=== PATIENT | female | born 1990 | race Caucasian/White ===

== ENCOUNTER 2022-08-17 11:42 | Inpatient (IN) ==
[2022-08-17] MEDS ORDERED: LIDOCAINE 1% LOCAL 20 ML VIAL INFIL PRN (12:24)
[2022-08-17] MEDS ORDERED: OXYTOCIN 30 UNITS/500 ML BAG IV PRN (12:24)
[2022-08-17] MEDS ORDERED: PENICILLIN G POTASSIUM 6 MU in DEXTROSE 5% 250 ML IV ONE (12:45)
--- NOTE | 2022-08-17 13:28 | Obstetrical Progress Note ---
Date of Service August 17, 2022 Assessment & Plan (1) Oligohydramnios: Plan: Induction for oligohydramnios FHR; CAT1 Ctx; Minima VE /50/-3 Cervidil #1 Admission and Anticipated Discharge Date Admission Date: August 17, 2022 Results & Data ([facility]) Vital Signs (Past 12 Hours) Vital Signs Pulse BP 08/17/22 11:53 67 125/58 L
[2022-08-17 13:39] LABS: Hematocrit (blood only) 34.2 % (34.1-44.9); Hemoglobin 11.4 g/dl (12.0-16.0); Mean Corpuscular Hemoglobin 28.6 pg (25.0-34.0); Mean Corpuscular Hgb Conc 33.3 g/dL (32.0-36.0); Mean Corpuscular Volume 85.7 fL (80.0-100.0); Mean Platelet Volume 11.2 fL (9.4-12.3); Platelet Count 285 K/uL (130-400); RDW Coefficient of Variation 13.3 % (11.5-14.5); RDW Standard Deviation 41.6 fL (36.4-46.3); Red Blood Count 3.99 M/uL (3.93-5.22); White Blood Count 12.86 K/ul (4.8-10.8)
[2022-08-17] MEDS: miSOPROStoL 50 MCG TAB PO SCH ×2 (15:00→22:29)
[2022-08-17] MEDS ORDERED: PENICILLIN G POTASSIUM 3 MU in DEXTROSE 5% 100 ML IV PRN (15:24)
[2022-08-17] MEDS: LACTATED RINGER'S 1,000 ML IV PRN (18:39)
[2022-08-17] MEDS ORDERED: DINOPROSTONE 10 MG INSERT PV ONE (20:49)
--- NOTE | 2022-08-17 22:12 | Obstetrical Progress Note ---
Date of Service August 17, 2022 Assessment & Plan (1) Oligohydramnios: Plan: Induction for Oligo' FHR; CAT1 Ctx. Minimal Ve ft/post Cervidil #1 inserted in vagina Admission and Anticipated Discharge Date Admission Date: August 17, 2022 Results & Data ([facility]) Vital Signs (Past 12 Hours) Vital Signs Temp Pulse Resp BP O2 Del Method 08/17/22 19:02 36.5 C 18 08/17/22 19:02 Room Air 08/17/22 14:23 36.9 C 20 08/17/22 22:05 18 08/17/22 22:05 36.5 C 18 08/17/22 22:05 55 L 08/17/22 22:05 102/59 L 08/17/22 19:00 18 08/17/22 19:00 36.5 C 18 08/17/22 19:01 58 L 08/17/22 19:01 107/62 08/17/22 18:39 36.5 C 08/17/22 18:36 59 L 08/17/22 18:36 116/55 L 08/17/22 17:22 62 08/17/22 17:22 108/57 L 08/17/22 15:01 68 08/17/22 15:01 118/58 L 08/17/22 11:53 67 125/58 L
[2022-08-18] MEDS ORDERED: BUTORPHANOL TARTRATE 1 MG/ML VIAL IV PRN (01:11)
[2022-08-18] MEDS: LACTATED RINGER'S 1,000 ML IV PRN (01:48)
[2022-08-18] MEDS: miSOPROStoL 50 MCG TAB PO SCH ×3 (03:39→07:20)
[2022-08-18] MEDS ORDERED: ePHEDrine sulfate 50 MG/ML AMP ONE (04:12)
[2022-08-18] MEDS ORDERED: SODIUM CHLORIDE 0.9% INJ 10 ML VIAL ONE (04:13)
[2022-08-18] MEDS ORDERED: fentaNYL citrate 100 MCG/2 ML VIAL ONE (04:13)
[2022-08-18] MEDS ORDERED: LIDOCAINE 2%/EPINEPHRINE 1:200,000 20 ML SDV ONE ×2 (04:13→05:46)
[2022-08-18] MEDS ORDERED: BUPIVACAINE 0.25% 30 ML VIAL ONE (04:13)
[2022-08-18] MEDS ORDERED: fentaNYL 2MCG/ML ROPIVACAINE 1.25MG/ML 100 ML BAG EPI ONE (04:13)
--- NOTE | 2022-08-18 04:27 | Anesthesiology Consultation ---
Date of Service August 18, 2022 Assessment & Plan (1) Oligohydramnios: (2) Encounter for pre-operative examination: Chart Review Chart Review: Acceptable Risk for Labor Epidural History Height/Weight Height: 5 ft 6 in Weight: 93.44 kg Allergies Allergy/AdvReac Type Severity Reaction Status Date / Time No Known Allergies Allergy Verified 08/17/22 12:34 Medications Home Medications Medication Instructions Recorded Confirmed Last Taken cyclobenzaprine 10 mg tablet 10 mg PO TID PRN muscle spasm #10 07/20/19 Unknown tabs Active Medications Generic Name Dose Route Start Last Admin Trade Name Freq PRN Reason Stop Dose Admin Butorphanol Tartrate 1 mg 08/18/22 01:11 08/18/22 01:31 Butorphanol Tartrate 1 Mg/Ml Vial IV 09/17/22 01:10 1 mg Q2HWA PRN Administration Pain Lactated Ringer's 1,000 mls @ 125 mls/hr 08/17/22 12:24 08/18/22 04:00 Lr IV 08/19/22 12:23 999 mls/hr .Q8H PRN Infusion L&D Protocol Protocol Misoprostol 50 mcg 08/17/22 13:25 08/18/22 03:39 Misoprostol 50 Mcg Tab PO 09/16/22 13:24 Not Given Q4 ERIK Past Medical History Medical History (Updated 08/18/22 @ 04:27 by Naresh Galvez MD) No significant medical problems Past Surgical History Surgical History (Updated 08/18/22 @ 04:25 by Naresh Galvez MD) Hx of tonsillectomy Social History Smoking Status: Current every day smoker tobacco type: cigarettes Smoking cigarettes per day: 10 Hx Alcohol Use: No Hx Substance Use: No substance use type: does not use Physical Exam Vital Signs Last Vital Signs Temp 36.4 C L 08/18/22 02:30 Pulse 91 H 08/18/22 04:20 Resp 20 08/18/22 02:31 BP 110/69 08/18/22 03:47 Pulse Ox 100 08/18/22 04:20 O2 Del Method 08/17/22 19:02 Testing Laboratory Results 08/17/22 13:02
[2022-08-18] MEDS ORDERED: ONDANSETRON INJ 2 MG/ML 2 ML VIAL IV PRN ×3 (04:48→23:55)
[2022-08-18] MEDS ORDERED: NALOXONE HCL 0.4 MG/1 ML VIAL/CARP IV PRN ×2 (04:48→05:55)
[2022-08-18] MEDS ORDERED: NALOXONE HCL 1 MG in SODIUM CHLORIDE 0.9% 1000ML 1,000 ML IV PRN ×2 (04:48→05:55)
[2022-08-18] MEDS ORDERED: fentaNYL 2MCG/ML ROPIVACAINE 1.25MG/ML 100 ML BAG EPI PRN (04:48)
[2022-08-18] MEDS ORDERED: ePHEDrine sulfate 50 MG/ML AMP IV PRN ×2 (04:48→05:55)
[2022-08-18] MEDS ORDERED: ceFAZolin 2000MG 2,000 MG/15 ML SYR IV ONE (05:36)
[2022-08-18] MEDS ORDERED: MoRPHine SULFATE PF 1 MG/ML 10 ML AMP/VIAL ONE (05:47)
[2022-08-18] MEDS ORDERED: METHYLERGONOVINE MALEATE 0.2 MG/ML AMP ONE (05:51)
[2022-08-18] MEDS ORDERED: OXYTOCIN 10 UNITS/ML 10ML VIAL ONE (05:52)
[2022-08-18] MEDS ORDERED: MoRPHine SULFATE PF 1 MG/ML 10 ML AMP/VIAL INT SPINAL ONE (05:55)
[2022-08-18] MEDS ORDERED: diphenhydrAMINE 50 MG/ML VIAL IV PRN ×2 (05:55→23:55)
[2022-08-18] MEDS ORDERED: KETOROLAC 30 MG/ML VIAL IV PRN (05:55)
[2022-08-18] MEDS ORDERED: LACTATED RINGER'S 500 ML IV PRN (05:55)
[2022-08-18] MEDS ORDERED: PROMETHAZINE HCL 12.5 MG in SODIUM CHLORIDE 0.9% 50 ML IV PRN (05:55)
[2022-08-18] MEDS ORDERED: NALBUPHINE HCL INJ 10 MG/ML AMP IV PRN (05:55)
[2022-08-18] MEDS ORDERED: MoRPHine SULFATE 2 MG/ML CARP IV PRN (05:55)
[2022-08-18] MEDS ORDERED: NALOXONE HCL 0.08 MG in SYRINGE 1.8 ML IV PRN (05:55)
[2022-08-18] MEDS ORDERED: NO NARCOTICS OR SEDATIVES SCH (06:00)
[2022-08-18] MEDS ORDERED: SODIUM CHLORIDE 0.9% 1000ML 1,000 ML IV SCH (06:00)
[2022-08-18] MEDS ORDERED: ceFAZolin 2000MG 2,000 MG/15 ML SYR IV SCH (06:00)
[2022-08-18] MEDS ORDERED: DC INTRASPINAL MORPHINE SCH (06:00)
[2022-08-18] MEDS ORDERED: ePHEDrine sulfate 50 MG/ML SYR ONE (06:12)
[2022-08-18] MEDS ORDERED: PHENYLEPHRINE 100MCG/ML 5ML SYR ONE (06:12)
[2022-08-18] MEDS ORDERED: METOCLOPRAMIDE HCL INJ 5 MG/ML 2 ML VIAL ONE (06:13)
[2022-08-18] MEDS ORDERED: ONDANSETRON INJ 2 MG/ML 2 ML VIAL ONE (06:13)
[2022-08-18 06:26] LABS: Base Excess Cord Venous Blood -8.8 mEq/L (-7.7-1.9); Cord Venous Blood HCO3 21 mmol/L (18.4-26.8); Cord Venous Blood PCO2 64 mmHg (30.4-57.2); Cord Venous Blood PO2 22 mmHg (14.1-43.3); Cord Venous Blood pH 7.13 (7.20-7.44); O2 Saturation Cord Venous Bld < 60.0 % (<68)
[2022-08-18] MEDS ORDERED: TERBUTALINE SULFATE 1 MG/ML VIAL SQ ONE ×2 (06:33→07:01)
--- NOTE | 2022-08-18 06:47 | Anesthesia Procedure Note ---
Date of Service August 18, 2022 Anesthesia Post Epidural Note Vital Signs Vital Signs: Temp Pulse Resp BP Pulse Ox O2 Del Method 36.4 C L 93 H 18 98/48 L 96 08/18/22 02:30 08/18/22 05:30 08/18/22 05:00 08/18/22 05:28 08/18/22 05:30 08/17/22 19:02 Notes Mental Status: alert / awake / arousable and participated in evaluation Nausea / Vomiting: adequately controlled Pain: adequately controlled Airway Patency, RR, SpO2: stable & adequate BP & HR: stable & adequate Hydration State: stable & adequate Neuraxial Anesthesia: was administered and sensory block is resolving Anesthetic Complications: no major complications apparent Epidural: Removed without complications and With tip intact
--- NOTE | 2022-08-18 06:53 | XRay Report ---
KUB CLINICAL HISTORY: stat . No instrument count. COMPARISON STUDY: None. FINDINGS: Skin sherry are noted. No unexpected radiopaque foreign bodies within the pelvis or lower abdomen are identified. Epidural is incidentally noted. IMPRESSION: No unexpected radiopaque foreign bodies within the pelvis or lower abdomen. ACT 112: Negative or not required by law. Electronically signed by: Denys Shell M.D. 08/18/2022 6:52 AM
[2022-08-18] MEDS ORDERED: MAGNESIUM HYDROXIDE SUSP 30 ML UDC PO PRN (06:54)
[2022-08-18] MEDS ORDERED: DIPHTHERIA/TETANUS/PERTUSSIS 0.5 ML SYR/VIAL IM ONE (06:54)
[2022-08-18] MEDS ORDERED: HYDROCORTISONE ACETATE 25 MG SUPP PR PRN (06:54)
[2022-08-18] MEDS ORDERED: BENZOCAINE 20% AER SPR 82.5 GM CAN EXT PRN (06:54)
[2022-08-18] MEDS ORDERED: SENNA 8.6 MG TAB PO PRN (06:54)
--- NOTE | 2022-08-18 06:54 | Obstetrical Progress Note ---
Date of Service August 18, 2022 Assessment & Plan (1) Oligohydramnios: Plan: Called to evaluate pt after epidural analgesia VE ; 3/50/-3 parra cath is placed FHr dropped to 50-60 attempt to resuscitate fetus was unsuccessful STAT c/sec done Admission and Anticipated Discharge Date Admission Date: August 17, 2022 Results & Data ([facility]) Vital Signs (Past 12 Hours) Vital Signs Temp Pulse Resp BP Pulse Ox O2 Del Method 08/17/22 19:02 36.5 C 18 08/17/22 19:02 Room Air 08/18/22 06:50 84 97 08/18/22 06:48 86 108/55 L 08/18/22 05:30 93 H 96 08/18/22 05:28 76 98/48 L 08/18/22 05:25 96 H 97 08/18/22 05:24 89 106/51 L 08/18/22 05:20 87 97 08/18/22 05:18 80 102/59 L 08/18/22 05:15 77 96 08/18/22 05:13 81 99/56 L 08/18/22 05:10 76 97 08/18/22 05:11 74 98/54 L 08/18/22 05:09 82 96/53 L 08/18/22 05:07 77 101/53 L 08/18/22 05:05 96 08/18/22 05:05 74 08/18/22 05:05 89 94/51 L 08/18/22 05:03 80 93/50 L 08/18/22 05:00 82 18 97 08/18/22 05:01 82 92/51 L 08/18/22 04:59 85 92/46 L 08/18/22 04:57 88 103/52 L 08/18/22 04:55 98 08/18/22 04:55 93 H 08/18/22 04:55 83 93/46 L 08/18/22 04:53 81 98/47 L 08/18/22 04:50 77 97 08/18/22 04:51 75 93/49 L 08/18/22 04:49 82 99/51 L 08/18/22 04:47 75 102/51 L 08/18/22 04:45 84 104/56 L 98 08/18/22 04:43 137/69 08/18/22 04:40 83 97 08/18/22 04:41 86 136/60 08/18/22 04:39 83 125/60 08/18/22 04:35 97 H 98 08/18/22 04:34 94 H 140/63 08/18/22 04:30 97 H 98 08/18/22 04:25 90 99 08/18/22 04:20 91 H 100 08/18/22 04:15 73 97 08/18/22 04:10 70 97 08/18/22 03:47 56 L 110/69 08/18/22 02:30 20 08/18/22 02:30 36.4 C L 20 08/18/22 02:31 20 08/18/22 02:31 20 08/18/22 02:29 70 100 08/18/22 02:24 53 L 99 08/18/22 02:19 57 L 98 08/18/22 02:14 59 L 99 08/18/22 02:09 57 L 99 08/18/22 02:04 59 L 99 08/18/22 01:59 56 L 98 08/18/22 01:54 56 L 100 08/18/22 01:49 58 L 98 08/18/22 01:44 67 99 08/18/22 01:39 59 L 98 08/18/22 01:34 60 98 08/18/22 01:29 56 L 100 08/18/22 01:24 63 100 08/18/22 01:19 69 99 08/18/22 01:17 55 L 124/60 08/17/22 22:05 18 08/17/22 22:05 36.5 C 18 08/17/22 22:05 55 L 08/17/22 22:05 102/59 L 08/17/22 19:00 18 08/17/22 19:00 36.5 C 18 08/17/22 19:01 58 L 08/17/22 19:01 107/62
[2022-08-18] MEDS: LACTATED RINGER'S 1,000 ML IV SCH ×2 (07:24→22:03)
[2022-08-18] MEDS ORDERED: OXYTOCIN 20 UNITS in LACTATED RINGER'S 1,000 ML IV SCH (07:30)
--- NOTE | 2022-08-18 09:02 | Operative Report (OR) ---
DATE OF SURGERY: 08/18/2022 INDICATION FOR SURGERY: This is a 32-year-old G1, P0 at term, who was admitted on 08/17/2022 for tomy gohydramnios. HARRISON was 4.0. The patient's induction was started. She received Cervidil and Cytotec. Early a.m. of 08/18/2022, patient began to have intense contractions. She received epidural analge andrea. After the epidural, she was examined and found to be 3 cm, 50%, and -2 station. Suddenly fetus experienced bradycardia, resuscitation measures were performed including scalp stimulation, ad equate hydration and terbutaline. The bradycardia persisted. Decision was therefore made to perform a stat section. PREOPERATIVE DIAGNOSES: 1. at term. 2. Oligohydramnios. 3. Bradycardia, failed resuscitation. POSTOPERATIVE DIAGNOSES: 1. at term. 2. Oligohydramnios. 3. Bradycardia, failed resuscitation. SURGEON: Celestine Latif MD. ART MODEL: NOVA Vega. PROCEDURE: Primary section. ANESTHESIA: Epidural. DRAINS: None. ESTIMATED BLOOD LOSS: 700 mL. INTRAVENOUS FLUIDS: 2200 mL. URINE OUTPUT: 50 mL of clear urine at the end of the procedure. SPECIMEN: Placenta and cord gases. INTRAOPERATIVE COMPLICATIONS: None. PATIENT CONDITION: Stable. DISPOSITION: Postanesthesia care unit. ATTESTATION: I performed the entire procedure. FINDINGS: There was nuchal cord, which was easily reduced. There was meconium present as well. Ris ks of the abdominopelvic exam was unremarkable. INFANT INFORMATION: Is in the pediatric record. DESCRIPTION OF PROCEDURE: The patient was taken to the operating room where she was prepped in a sta t manner. A Pfannenstiel incision was made with a scalpel and carried down to the fascia. Fascia wa s incised in the midline, extended laterally on both sides. The rectus abdominis muscle was sharply dissected off the fascia. Peritoneum was identified and entered sharply and bluntly. Shawn retracto r was placed into the abdomen. A bladder flap was created and a transverse incision was made. This was extended laterally on both sides. Infant was delivered. Cord was clamped and cut, handed over t o the pediatric team. The uterus was exteriorized and cleared of all clots and debris after the plac enta was manually removed and cord gases obtained. Uterus was placed back into the abdominal cavity. Peritoneum was approximated with plain suture. Fascia was closed with Vicryl stitch and subcutaneo us space was irrigated and closed with plain suture. Skin was closed with sherry. All instruments were removed from the abdomen and accounted for x2 including sponges, needles, and re tractors. The patient is stable and sent to recovery. Job ID: [id number]
[2022-08-18] MEDS ORDERED: TERBUTALINE SULFATE 1 MG/ML VIAL ONE (12:45)
[2022-08-18] MEDS: SIMETHICONE 80 MG CHEW PO SCH ×4 (13:30→20:41)
[2022-08-18] MEDS: DOCUSATE SODIUM 100 MG CAP PO SCH ×2 (13:47→20:41)
[2022-08-18] MEDS: FERROUS SULFATE 325 MG TAB PO SCH (13:47)
[2022-08-18] MEDS: PRENATAL VITAMIN 1 TAB PO SCH (13:47)
[2022-08-18] MEDS ORDERED: PROMETHAZINE HCL 25 MG in SODIUM CHLORIDE 0.9% 50 ML IV PRN (23:55)
[2022-08-18] MEDS ORDERED: diphenhydrAMINE Capsule 25 MG CAP PO PRN (23:55)
[2022-08-19] MEDS: IBUPROFEN 600 MG TAB PO PRN ×5 (00:46→23:21)
[2022-08-19] MEDS: oxyCODONE/ACETAMINOPHEN 5mg/325mg TAB PO PRN ×5 (00:46→23:22)
[2022-08-19] MEDS: DOCUSATE SODIUM 100 MG CAP PO SCH ×2 (08:36→19:47)
[2022-08-19] MEDS: FERROUS SULFATE 325 MG TAB PO SCH (08:36)
[2022-08-19] MEDS: SIMETHICONE 80 MG CHEW PO SCH ×4 (08:36→19:46)
[2022-08-19] MEDS: PRENATAL VITAMIN 1 TAB PO SCH (08:36)
[2022-08-19 09:01] LABS: Basophils # (auto) 0.03 K/uL (0-0.2); Basophils % (auto) 0.2 %; Eosinophils # (auto) 0.14 K/uL (0-0.50); Eosinophils % (auto) 0.9 %; Hematocrit (blood only) 29.8 % (34.1-44.9); Hemoglobin 9.8 g/dl (12.0-16.0); Immature Granulocytes % (auto) 0.6 %; Lymphocytes # (auto) 2.53 K/uL (1.2-3.4); Lymphocytes % (auto) 16.2 %; Mean Corpuscular Hemoglobin 28.1 pg (25.0-34.0); Mean Corpuscular Hgb Conc 32.9 g/dL (32.0-36.0); Mean Corpuscular Volume 85.4 fL (80.0-100.0); Mean Platelet Volume 11.1 fL (9.4-12.3); Monocytes # (auto) 1.02 K/uL (0.24-0.82); Monocytes % (auto) 6.5 %; Neutrophils # (auto) 11.78 K/uL (1.4-6.5); Neutrophils % (auto) 75.6 %; Platelet Count 279 K/uL (130-400); RDW Coefficient of Variation 13.4 % (11.5-14.5); RDW Standard Deviation 41.5 fL (36.4-46.3); Red Blood Count 3.49 M/uL (3.93-5.22)
--- NOTE | 2022-08-19 10:39 | Obstetrical Progress Note ---
Date of Service August 19, 2022 Assessment & Plan (1) delivery delivered: c/ #1 pt doing well continue day #1 care Subjective Ambulation: ambulating normally Voiding: no voiding problems Passing Gas:: Yes Diet Tolerance:: clear liquids Lochia:: Small Feeding Type:: breast feeding Review of Systems All systems reviewed & are unremarkable except as noted in HPI & below Physical Exam Constitutional WD/WN, vitals as above well developed and well nourished Eyes PERRL, conjunctivae normal, anicteric sclerae ENMT external ear and nose normal, oropharynx normal Neck trachea midline, no thyromegaly Respiratory normal respiratory effort, lungs clear to auscultation Cardiovascular RRR, no murmur, no edema Chest (Breasts) normal inspection/palpation of breasts Gastrointestinal (Abdomen) normal bowel sounds, soft, nontender, no hepatosplenomegaly Musculoskeletal no cyanosis or clubbing, extremities motor strength 5/5 Skin no rashes, warm and dry + incision (Clean,dry and intact) Neurologic patellar DTR's 2+ bilat, sensation intact Psychiatric A+Ox3, euthymic affect Genitourinary normal external appearance Lymphatic no cervical or axillary lymphadenopathy Results & Data ([facility]) Vital Signs (Past 12 Hours) Vital Signs Temp Pulse Resp BP Pulse Ox O2 Del Method 08/19/22 07:40 36.8 C 84 18 98/62 L 97 Room Air 08/19/22 03:30 37.0 C 79 18 98/59 L 96 Room Air 08/19/22 00:00 36.8 C 86 18 100/63 97 Room Air 08/19/22 00:00 18 97 08/18/22 23:00 18 96
[2022-08-19] MEDS ORDERED: IRON SUCROSE 200 MG in 0.9 % SODIUM CHLORIDE 100 ML IV ONE (11:00)
--- NOTE | 2022-08-19 11:17 | Obstetrical Progress Note ---
Date of Service August 19, 2022 Assessment & Plan (1) delivery delivered: Results & Data ([facility]) Vital Signs (Past 12 Hours) Vital Signs Temp Pulse Resp BP Pulse Ox O2 Del Method 08/19/22 07:40 36.8 C 84 18 98/62 L 97 Room Air 08/19/22 03:30 37.0 C 79 18 98/59 L 96 Room Air 08/19/22 00:00 36.8 C 86 18 100/63 97 Room Air 08/19/22 00:00 18 97
[2022-08-19] MEDS ORDERED: bisacodyL 5 MG TABEC PO SCH (20:00)
[2022-08-20] MEDS: IBUPROFEN 600 MG TAB PO PRN ×2 (05:06→09:16)
[2022-08-20] MEDS: oxyCODONE/ACETAMINOPHEN 5mg/325mg TAB PO PRN ×2 (05:06→09:15)
[2022-08-20] MEDS ORDERED: bisacodyL 10 MG SUPP PR PRN (06:55)
[2022-08-20 08:00] LABS: Hematocrit (blood only) 29.6 % (34.1-44.9); Hemoglobin 9.6 g/dl (12.0-16.0)
--- NOTE | 2022-08-20 08:41 | Obstetrical Progress Note ---
Date of Service August 20, 2022 Assessment & Plan (1) delivery delivered: Postop day 2 Continue normal course, staple removal in the office 5 to 7 days after instructions discussed with patient, patient discharge will be placed at this time Subjective Ambulation: ambulating normally Voiding: no voiding problems Passing Gas:: Yes Diet Tolerance:: regular diet Lochia:: Small Feeding Type:: breast feeding Current Pain Level(1-10): 1 Doing well, wants to go home today Review of Systems All systems reviewed & are unremarkable except as noted in HPI & below Physical Exam Constitutional WD/WN, vitals as above Respiratory normal respiratory effort, lungs clear to auscultation Cardiovascular RRR, no murmur, no edema Gastrointestinal (Abdomen) normal bowel sounds, soft, nontender, no hepatosplenomegaly Incision, clean dry intact and sherry in place. No erythema Results & Data ([facility]) Vital Signs (Past 12 Hours) Vital Signs Temp Pulse Resp BP Pulse Ox O2 Del Method 08/19/22 23:09 36.6 C 71 18 103/66 96 Room Air
[2022-08-20] MEDS: DOCUSATE SODIUM 100 MG CAP PO SCH (09:15)
[2022-08-20] MEDS: PRENATAL VITAMIN 1 TAB PO SCH (09:15)
[2022-08-20] MEDS: SIMETHICONE 80 MG CHEW PO SCH (09:15)
[2022-08-20] MEDS: FERROUS SULFATE 325 MG TAB PO SCH (09:15)
--- NOTE | 2022-08-25 11:21 | Coding Query ---
CODING QUERY To promote full compliance with coding requirements relating to patient care, provider participation is requested in all cases of supervisor mold construction uncertainty. Please assist us with the question(s) below: Coding Question(s): Please confirm the weeks of gestation at the time of admission. This is missing in the documentation. Physician's Response(s): 40.2 weeks gestation Thank you Dunia Stewart Principal Diagnosis: "that condition established after study, to be chiefly responsible for occasioning the admission of the patient to the hospital for care." Co-Existing Principal Diagnosis: "when two or more diagnoses equally meet the criteria for principal diagnosis as determined by the circumstances of admission, diagnostic work up, and/or therapy provided, and the Alphabetic Index, Tabular List, or another coding guideline does not provide sequencing direction, any one of the diagnoses may be sequenced first." "When the physician has documented what appears to be a current diagnosis in the body of the record, but has not included the diagnosis in the final diagnostic statement, the physician should be asked whether the diagnosis should be added." ([facility] 2 QTR90. p3-4) LUIS
--- NOTE | 2022-08-29 11:02 | Discharge Summary (DS) ---
DATE OF ADMISSION: 08/17/2022. DATE OF DISCHARGE: 08/20/2022. HISTORY OF PRESENT ILLNESS: This is a 32-year-old G1, P0 at term , was admitted on 08/17/20 22 for oligohydramnios with HARRISON of 4.0. She was admitted for induction of labor. Induction was star rachel. The patient received Cervidil and Cytotec early on the morning of 08/18/2022. Patient began to have nonreassuring heart rate. Decision was therefore made to perform section after she had prolonged bradycardia. Details of surgery is in the surgical note. Postoperatively, the pat ient did well and met all milestones in recovery and on postoperative day #1 and #2, she was safely d ischarged home on 08/20/2022. PAST MEDICAL HISTORY: The patient had no history of diabetes, hypertension, or asthma. PAST SURGICAL HISTORY: The patient has a history of tonsillectomy. SOCIAL HISTORY: The patient was . Denies drug or alcohol use. FAMILY HISTORY: Noncontributory. ALLERGIES: The patient has no known drug allergies. REVIEW OF SYSTEMS: Negative except as dictated in the HPI. PHYSICAL EXAMINATION: VITAL SIGNS: Vitals on 08/20/2022 showed blood pressure of 112/74, pulse of 70, respiration of 18, t emperature of 36.3. HEART: S1 and S2, regular rhythm and rate. LUNGS: Clear to auscultation bilaterally. ABDOMEN: Nontender, nondistended, positive bowel sounds. Incision was clean, dry and intact. EXTREMITIES: No cyanosis, clubbing or edema. LABORATORY DATA: Labs on 08/20/2022 showed hemoglobin of 9.6, hematocrit of 29.6. OPERATIONS: Primary section. DISCHARGE DIAGNOSIS: Postoperative section. PLAN ON DISCHARGE: The patient is discharged home with instructions including diet, followup appoint ment and medications. Job ID: [id number]
== END 2022-08-20 12:45 | disposition home or self-care (01) | DRG 787 ==
LOC: 4S1 11:42 → 4E2 12:21 → 4S1 12:41 → 4E2 08-18 10:07

== ENCOUNTER 2024-05-02 05:37 | Inpatient (IN) ==
--- NOTE | 2024-04-23 12:11 | Anesthesiology Consultation ---
Date of Service April 23, 2024 Assessment & Plan (1) Encounter for pre-operative examination: - CSE 08/18/22 L3-L4 1 attempt. - Per traveling phlebotomist on 04/23/24: No known infectious disease contacts, current infectious disease symptoms in past 10 days or COVID positive test result in the past 30 days. Chart Review Chart Review: entry level software developer initiated History Surgery Operation Date: 05/02/24 07:30 Proposed Procedures p Repeat Section - Esperanza Mcmahon MD s With Bilateral Tubal Ligation - Esperanza Mcmahon MD Height/Weight Height: 5 ft 6 in Weight: 108.862 kg Allergies Allergy/AdvReac Type Severity Reaction Status Date / Time No Known Allergies Allergy Verified 04/23/24 10:43 Medications Home Medications Medication Instructions Recorded Confirmed Last Taken iron,carbonyl 65 mg-vitamin C 125 1 tab PO QAM 04/23/24 04/23/24 Unknown mg tablet,delayed release (Vitron-C) levothyroxine 75 mcg tablet 75 mcg PO QAM 04/23/24 04/23/24 Unknown prenat.vits,madhuri,ytv-hyzm-zzuez 1 tab PO QAM 04/23/24 04/23/24 Unknown Past Medical History Medical History (Updated 04/23/24 @ 12:08 by Bailey Berry PA-C) Anemia History of COVID-19 2022, asymptomatic but dtr tested positive>no residual symptoms Hypothyroidism Oligohydramnios hx, with previous in 2021 Past Surgical History Surgical History History of carpal tunnel release of both wrists History of dilatation and curettage Hx of section 2021 Hx of tonsillectomy Social History Smoking Status: Current some day smoker tobacco type: cigarettes Smoking cigarettes per day: occasional use Smoking End Date: quit cigarettes 2021; vapes occasionally now Hx Alcohol Use: Yes (none for last 6-7 years) Hx Substance Use: Yes substance use type: former substance user and marijuana Last Used Substance Other:: years ago Testing Laboratory Results 03/26/24 WBC: 11.2 H/H: 11/38 PLATELETS: 346,000
[2024-05-02] MEDS: LACTATED RINGER'S 1,000 ML IV SCH ×2 (05:45→07:06)
[2024-05-02] MEDS: ACETAMINOPHEN 500 MG TAB ONE (06:46)
[2024-05-02 06:48] LABS: Hematocrit (blood only) 33.3 % (37.0-47.0); Hemoglobin 11.1 g/dl (12.0-16.0); Mean Corpuscular Hemoglobin 26.6 pg (25.0-34.0); Mean Corpuscular Hgb Conc 33.3 g/dL (32.0-36.0); Mean Corpuscular Volume 79.9 fL (80.0-100.0); Mean Platelet Volume 11.7 fL (9.4-12.4); Platelet Count 297 K/uL (130-400); RDW Coefficient of Variation 13.8 % (11.5-14.5); RDW Standard Deviation 39.8 fL (36.4-46.3); Red Blood Count 4.17 M/uL (4.20-5.40); White Blood Count 13.06 K/ul (4.8-10.8)
[2024-05-02] MEDS ORDERED: SODIUM CHLORIDE 0.9% 250 ML IV PRN (06:54)
[2024-05-02] MEDS ORDERED: MoRPHine SULFATE PF 1 MG/ML 10 ML AMP/VIAL ONE (07:07)
--- NOTE | 2024-05-02 07:25 | History & Physical Bridge Note ---
Date of Service May 02, 2024 History & Physical Bridge Note I have examined the patient, reviewed the History & Physical and in the interval since the performance of the History & Physical I have noted the following changes of clinical significance: no changes noted
[2024-05-02] MEDS: ceFAZolin 2000MG 2,000 MG/15 ML SYR IV SCH (08:07)
[2024-05-02] MEDS ORDERED: METOCLOPRAMIDE HCL INJ 5 MG/ML 2 ML VIAL ONE (08:28)
[2024-05-02] MEDS ORDERED: PHENYLEPHRINE 100MCG/ML 10ML SYR IV ONE (08:28)
[2024-05-02] MEDS ORDERED: ONDANSETRON INJ 2 MG/ML 2 ML VIAL ONE (08:28)
[2024-05-02] MEDS ORDERED: DEXAMETHASONE SOD INJ 4 MG/ML VIAL ONE (08:28)
[2024-05-02] MEDS ORDERED: ePHEDrine sulfate 50 MG/5 ML SYR ONE (08:28)
[2024-05-02] MEDS ORDERED: ceFAZolin 330 MG/ML 1 GM VIAL ONE (08:28)
[2024-05-02] MEDS ORDERED: OXYTOCIN 10 UNITS/ML VIAL ONE ×3 (08:30→09:03)
[2024-05-02] MEDS ORDERED: SUCCINYLCHOLINE CHLORIDE 20 MG/ML 10 ML VIAL IV ONE (08:31)
[2024-05-02] MEDS ORDERED: ONDANSETRON INJ 2 MG/ML 2 ML VIAL IV PRN (08:41)
[2024-05-02] MEDS ORDERED: PROMETHAZINE 6.25 MG/50.25 ML BAG IV PRN (08:41)
[2024-05-02] MEDS ORDERED: NALBUPHINE HCL 5 MG in SYRINGE 0 ML IV PRN (08:41)
[2024-05-02] MEDS ORDERED: diphenhydrAMINE 50 MG/ML VIAL IV PRN (08:41)
[2024-05-02] MEDS ORDERED: NALOXONE HCL 0.4 MG/1 ML VIAL/CARP IV PRN (08:41)
[2024-05-02] MEDS ORDERED: NALOXONE HCL 0.08 MG in SYRINGE 1.8 ML IV PRN (08:41)
[2024-05-02] MEDS ORDERED: MoRPHine SULFATE 2 MG/ML CARP IV PRN (08:41)
[2024-05-02] MEDS ORDERED: LACTATED RINGER'S 500 ML IV PRN (08:41)
[2024-05-02] MEDS ORDERED: MoRPHine SULFATE PF 1 MG/ML 10 ML AMP/VIAL INT SPINAL ONE (08:41)
[2024-05-02] MEDS ORDERED: ePHEDrine sulfate 50 MG/ML AMP IV PRN (08:41)
[2024-05-02] MEDS ORDERED: NALOXONE HCL 1 MG in SODIUM CHLORIDE 0.9% 1,000 ML IV PRN (08:41)
[2024-05-02] MEDS ORDERED: SODIUM CHLORIDE 0.9% 1,000 ML IV SCH (08:45)
[2024-05-02] MEDS ORDERED: DC INTRASPINAL MORPHINE SCH (08:45)
[2024-05-02] MEDS ORDERED: NO NARCOTICS OR SEDATIVES SCH (08:45)
[2024-05-02] MEDS ORDERED: HYDROCORTISONE ACETATE 25 MG SUPP PR PRN (09:30)
[2024-05-02] MEDS ORDERED: CALCIUM CARBONATE 500 MG CHEWABLE TAB PO PRN (09:30)
[2024-05-02] MEDS ORDERED: LACTATED RINGER'S 1,000 ML IV SCH (09:30)
[2024-05-02] MEDS ORDERED: DIPHTHER/TETAN/PERTUS Vaccine (Tdap, Adol/Adult) 0.5mL IM ONE (09:30)
[2024-05-02] MEDS ORDERED: BENZOCAINE 20% SPRY 85 APPLN/85 GM CAN EXT PRN (09:30)
[2024-05-02] MEDS ORDERED: SENNA 8.6 MG TAB PO PRN (09:30)
--- NOTE | 2024-05-02 09:31 | Operative Report ---
Post Operative Report Pre & Post Diagnosis Operation Date: 05/02/24 07:30 Pre-Op Diagnosis: 1. Term 2. Previous section who desires repeat 3. Bilateral tubal ligation Post-Op Diagnosis: Same I identified the patient and participated in the time-out.: Yes Procedure Operation Date: 05/02/24 07:30 Actual Procedures p Repeat Section with the of a live male child at 0838. - Esperanza Mcmahon MD s Bilateral Tubal Sterilization - Esperanza Mcmahon MD Surgeon Esperanza Mcmahon MD Acid Leveler CRUZ Duran Quantitative Blood Loss (QBL) 348 ml Findings Consistent with Post-Op Diagnosis Baby was a viable male , Apgars 9/9, weight 3100 gr, Delivered at 08:38 AM maternal findings, normal uterus open tubes and ovaries. Specimens Placenta and cord Drains Villareal catheter drained 125 mL of clear urine Anesthesia Type Spinal Complications none Disposition Accompanied Patient To Recovery: Yes Indications patient is a 34-year-old -0-0-1 at 39 weeks of gestation who was admitted for schedule repeat and bilateral tubal ligation. Patient has a history of prior 2021 and declined TOLAC/ and desired repeat C- section. Patient has been counseled for reversible nonsurgical contraceptive options she declined them all and she desires tubal sterilization with her today. She understand the risks and signed informed consent. Description of Procedure Patient was taken to operating room where a spinal anesthesia was given without difficulty. She was placed in dorsal supine position with a leftward tilt. She was prepared and draped in usual sterile fashion. A financial skin incision was made and carried through to the underlying layer of fascia with the Bovie. Fascia was incised in the midline and incision was extended laterally with the help of Garrett scissors. Then the upper aspect of the fascial incision was g rasped with 2 Geovanni clamps elevated the underlying rectus muscles were dissected off sharply with Garrett scissors. Same thing was done on the lower incision. Then the muscles were in the midline, peritoneum was identified grasped with 2 pickups and entered sharply with Metzenbaum scissors. Peritoneal incision was extended superior and inferiorly with good visualization of the bladder. The bladder blade was inserted. Vesicouterine peritoneum was identified, grasped with pickups and entered sharply with Metzenbaum scissors, bladder flap was created digitally and bladder blade was reinserted. Uterus was incised in transverse fashion, incision was extended laterally, membranes were ruptured and clear fluid was obtained. Baby's head was delivered without difficulty, followed by shoulders and body with minimal traction without faculty. There was nuchal cord x 2 around the neck those were reduced while delivering the infant. Mouth and nose were suctioned there was dried on the field he was vigorously crying and moving. The cord was clamped times and cut at 1 minute delay and then the was handed off to the pediatric team. Then the placenta was delivered manually as intact and complete. Uterus was externalized and cleared of all clots and debris's. Uterine incision was repaired with 0 Vicryl in a running locked fashion, second umbricating layer was placed with the same suture in running locked fashion. Excellent hemostasis achieved. Cul-de-sac and the pelvis was irrigated with warm normal saline and suctioned. Incision was checked of anesthetic again. Uterus was returned to the abdomen, parietal peritoneum was reapproximated with 3-0 Vicryl in a running fashion and the muscles were reapproximated in the same suture in a running fashion. All of the fascia and rectus muscles were hemostatic. Rectus fascia was reapproximated with 0 Vicryl starting from both columns meeting in the midline. Subcuticular fat tissue was brought together with 2-0 Vicryl in a running fashion, skin was closed with 4-0 Monocryl in a subcuticular cuticular fashion. The mom and baby tolerated procedure well. Sponge needle instrument count was correct x3. she was given 2 g of cefazolin before surgery. No complications happened, I was present during whole procedure. My assistant teacher primary was needed for retraction, hemostasis and aid during delivery of infant I attest to the content of the Intraoperative Record and any orders documented therein. Any exceptions are noted below.
[2024-05-02] MEDS: KETOROLAC 30 MG/ML VIAL IV PRN (11:11)
[2024-05-02] MEDS ORDERED: Nursing to Pharmacy Communication SCH (12:30)
--- NOTE | 2024-05-02 12:43 | Anesthesiology Progress Note ---
Date of Service May 02, 2024 Anesthesia Post Procedure Vital Signs Vital Signs: Temp Pulse Resp BP Pulse Ox 05/02/24 11:30 84 100 05/02/24 11:25 83 105/52 L 100 05/02/24 11:20 75 100 05/02/24 11:15 82 107/68 100 05/02/24 11:10 78 100 05/02/24 11:05 100 05/02/24 11:05 67 05/02/24 11:05 68 105/54 L 05/02/24 11:00 78 100 05/02/24 10:55 74 102/51 L 100 05/02/24 10:50 77 99 05/02/24 10:45 72 101/50 L 99 05/02/24 10:40 77 98 05/02/24 10:35 83 102/59 L 99 05/02/24 10:30 77 97 05/02/24 10:26 76 119/59 L 05/02/24 10:25 79 100 05/02/24 10:20 79 100 05/02/24 10:15 73 121/56 L 98 05/02/24 10:10 70 99 05/02/24 10:05 83 22 118/71 98 05/02/24 10:05 99 05/02/24 10:05 74 05/02/24 10:05 82 118/71 05/02/24 10:00 72 100 05/02/24 09:59 72 91 05/02/24 09:55 79 20 114/54 L 98 05/02/24 09:55 76 114/56 L 99 05/02/24 09:50 79 99 05/02/24 09:49 85 91 05/02/24 09:45 73 18 98/56 L 98 05/02/24 09:45 89 98/56 L 98 05/02/24 09:40 79 99 05/02/24 09:39 79 89 L 05/02/24 09:35 78 18 108/51 L 100 05/02/24 09:35 100 05/02/24 09:35 80 05/02/24 09:35 78 108/51 L 05/02/24 09:30 92 H 97 05/02/24 09:26 36.4 C L 71 18 113/54 L 100 05/02/24 09:26 70 113/54 L 05/02/24 09:25 71 100 05/02/24 07:13 68 105/78 05/02/24 07:10 36.4 C L 05/02/24 05:58 36.6 C 18 05/02/24 05:49 68 120/59 L Pain Intensity Lower Medial Abdomen: Pain Intensity: 0 Transfer of Care Handoff Completed per policy Notes Mental Status: alert / awake / arousable Patient Amnestic to Procedure: Yes Nausea / Vomiting: adequately controlled Pain: adequately controlled Airway Patency, RR, SpO2: stable & adequate BP & HR: stable & adequate Hydration State: stable & adequate Neuraxial Anesthesia: was administered and sensory block is resolving Anesthetic Complications: no major complications apparent
--- OUTSIDE RECORDS SUMMARY | 2024-05-02 12:53 | External Medical Summary | Summary of Care ---
Author Name Unknown Organization [facility] Address [address] [place] [address] Phone [phone] Care Team Providers Care Colorer Name Role Phone Barbra Lord DO Primary Care Provider [phone] Reason for Visit * Reason Comments Return Visit Encounter Details Date Type Department Care Team (Late st Contact Info) Description 04/27/2024 2:15 PM EDT Office Visit Gynecology/Obstetric s [facility] [address] [facility] [place] [address] Barbra Lucas PA-C [address] [facility] [place] [id number] Normal in third trimester*; Multigravida of advanced maternal age in third trimester; Obesity in , antepartum; Hypothyroidism affecting in third trimester; Previous delivery, antepartum condition or complication; History of prior with SGA ; complicated by tobacco use in third trimester; Uterine size date discrepancy Allergies No known active allergiesdocumented as of this encounter (statuses as of 04/27/2024) Medications Medication Sig Dispensed Refills Start Date End Date Status Levothyroxine Sodium 75 MCG Oral Tablet (Levoxyl) Take 1 Tablet by mouth in the morning. (at least 30 min prior to breakfast or other meds). 90 Tablet 3 09/16/2023 Active 28-0.8 MG Oral Tablet Take by mouth. Active Vitron-C 65-125 MG Oral Tablet (Iron-Vitamin C 65-125 mg per tab) Take 1 Tablet by mouth in the morning. 60 Tablet 1 02/13/2024 Active documented as of this encounter (statuses as of 04/27/2024) Active Problems Problem Noted Date Diagnosed Date Antepartum anemia 02/13/2024 Overview: Hgb 11.2 at 27w5d. Vitron C once daily. Repeat CBC at 34 weeks - hgb 11.8 Normal 10/17/2023 Obesity in , antepartum 10/17/2023 Overview: Class 1, early GTT normal Hypothyroidism affecting 10/17/2023 Overview: TSH Results: Lab Results Component Value Date/Time TSH - [facility] 2.69 09/19/2023 04:00 PM TSH - [facility] 0.81 07/21/2023 10:58 AM TSH - [facility] 1.42 05/17/2023 02:13 PM AMA (advanced maternal age) multigravida 35+ 01/2024 Previous delivery, antepartum condition or complication 10/17/2023 History of prior with SGA 01/2024 Overview: 1st baby 2,481g at 40w5d - consider 3rd trimester growth Tobacco use complicating 10/17/2023 Overview: Vapes, encouraged cessation Hypothyroidism 09/29/2023 Hyperprolactinemia 07/21/2023 Pituitary microadenoma 04/19/2011 Estimated Date of Delivery Comme nts Yes 05/09/2024 Based on Ultraso und documented as of this encounter (statuses as of 04/27/2024) Resolved Problems Problem Noted Date Diagnosed Date Resolved Date Severe obesity (BMI 35.0-35. 9 with comorbidity) 07/21/2023 09/29/2023 Carrier of group B Streptococcus 07/22/2022 09/28/2022 Anemia during in third trimester 07/11/2022 09/28/2022 Overview: 11.1 at 28w Polyhydramnios in third trimester 06/29/2022 07/27/2022 Overview: HARRISON 26cm at 33w4d Polyhydramnios is categorized as: o Mild HARRISON of 24.0-29.9 cm o Moderate HARRISON of 30.0-34.9 cm o Severe HARRISON of greater than or equal to 35 cm o RECOMMENDATIONS: In non-diabetic patients, re-screen for GDM if not done within the previous 4 weeks. Perform MFM (Maternal- Medicine) ultrasound in 4 weeks for assessment of growth and fluid. Recommend delivery at 39 weeks. Supervision of normal first , antepartum 12/28/2021 09/28/2022 Tobacco abuse 12/28/2021 09/29/2023 documented as of this encounter (statuses as of 04/27/2024) Immunizations Name Administration Dates Next Due TDAP (age 10 and older)(Boostrix) 07/26/2022 documented as of this encounter Social History Tobacco Use Types Packs/Day Years Used Date Smoking Tobacco: Former Cigarettes Smokeless Tobacco: Never Alcohol Use Standard Drinks/Week Comments Not Currently 0 (1 standard drink = 0.6 oz pur e alcohol) PHQ-2 Answer Date Recorded PHQ Adult Total Score 0 12/12/2023 Hunger Vital Sign Answer Date Recorded Within the past 12 months, y ou worried that your food would run out before you got the money to buy more. Never true 11/28/19 24 Within the past 12 months, t he food you bought just didn't last and you didn't have money to get more. Never true 11/28/2023 [place] Depression Scale Answer Date Recorded [place] Depression Scale Total 3 04/12/2024 The thought of harming myself has occurred to me . Never 04/12/2024 Childcare Answer Date Recorded Do you feel overwhelmed with taking care of a child, family member or friend? No 11/28/2023 Does your family need help f inding childcare? (Household - for ages 0-17 years) Not on file 11/28/2023 Clothing Answer Date Recorded Have you been unable to get clothing when it was really needed? No 11/28/2023 Is your family able to get c lothes or diapers when needed? (Household - for ages 0-17 years) Not on file 11/28/2023 Personal Safety Answer Date Recorded Do you feel unsafe or have concerns for your saf ety? No 11/28/2023 Do you have concerns for you r family's safety? (Household - for ages 0-17 years) Not on file 11/28/2023 Utilities Answer Date Recorded Do you have trouble paying y our heating, water, or electric bill? No 11/28/2023 Is your family able to pay t he heat, water, or electric bill? (Household - for ages 0-17 years) Not on file 11/28/2023 Does your family have access to good internet? (Household - for ages 0-17 years) Not on file 11/28/2023 Employment Status Answer Date Recorded Are you unemployed or without regular income? No 11/28/2023 Does the household have a [facility] source of income? (Household - for ages 0-17 years) Not on file 11/28/2023 Social Connections Answer Date Recorded How often do you feel lonely or isolated from th ose around you? Never 11/28/2023 Financial Resource Strain Answer Date R ecorded Do you have any trouble payi ng for your medications, or do you think you might in the future? No 11/28/2023 Does your family have troubl e paying for medicine? (Household - for ages 0-17 years) Not on file 11/28/2023 Transportation Needs Answer Date Record ed READ ONLY Do you have troubl e getting a ride to medical visits or work? Never True 11/28/2023 Does your family have a hard time getting a ride to doctors visits? (Household - for ages 0-17 years) Not on file 11/28/2023 Has lack of transportation k ept you from medical appointments, meetings, work, or from getting things needed for daily living? Check all that apply. (Adult - for ages 18 years and over) Not on file 11/28/2023 Do you (or your family) have trouble finding or paying for a ride (transportation)? (Household - for ages 0-17 years) Not on file 11/28/2023 Housing Stability Answer Date Recorded Do you currently live in a s helter or have no steady place to sleep at night? No 11/28/2023 READ ONLY Do you think you a re at risk of becoming homeless? No 11/28/2023 Does your family worry about paying for your home or becoming homeless? (Household - for ages 0-17 years) Not on file 0 11/28/2023 Are you homeless or worried that you might be in the future? (Adult - for ages 18 years and over) Not on file Are you (or your family) sheldon eless or worried that you might be in the future? (Household - for ages 0-17 years) Not on file Food Insecurity Answer Date Recorded Do you need food for this week? No 11/28/2023 Are you able to get enough f ood for your family? (Household - for ages 0-17 years) Not on file 11/28/2023 Does your family need food t his week? (Household - for ages 0-17 years) Not on file 11/28/2023 Do you always have enough fo od for your family? (Household - for ages 0-17 years) Not on file 11/28/2023 Estimated Date of Delivery Comme nts Yes 05/09/2024 Based on Ultraso und Sex and Gender Information Value Date Recorded Sex Assigned at Female 12/28/2021 2:06 PM EDT Gender Identity Female 12/28/2021 2:06 PM EDT Sexual Orientation Straight 12/28/2021 2: 06 PM EDT Job Start Date Occupation Industry Not on file Not on file Not on file documented as of this encounter Last Filed Vital Signs Vital Sign Reading Time Taken Comments Blood Pressure 116/70 04/27/2024 2:12 PM EDT Pulse - - Temperature - - Respiratory Rate - - Oxygen Saturation - - Inhaled Oxygen Concentration - - Weight 108.4 kg (239 lb) 04/27/2024 2:12 PM EDT Height 167.6 cm (5' 6") 04/27/2024 2:12 PM EDT Body Mass Index 38.58 04/27/2024 2:12 PM EDT documented in this encounter Progress Notes * Renee Mandel LPN - 04/27/2024 2:12 PM EDT 38w2d Had US today 55% 3381gm Harrison 18.9 * Barbra Lucas PA-C - 04/27/2024 1:55 PM EDT Barbara Casiano is a 34 year old female here for her routine OB appointment at 38w2d Her Estimated Date of Delivery: 05/09/24 with BTL scheduled 05/02. U/S today for size > dates. Finalized report shows EFW 55th percentile. HARRISON 19.0. Heart rate 156bpm. Vertex presentation. REVIEW OF SYSTEMS She affirms movement. Denies vaginal bleeding, LOF, contractions, N/V, headaches, vision changes, chest pain, RUQ pain. PHYSICAL EXAM Filed Vitals: 04/27/24 1412 BP: 116/70 Weight: 108.4 kg (239 lb) Height: 1.676 m (5' 6") ASSESSMENT/PLAN Normal in third trimester (Primary) Multigravida of advanced maternal age in third trimester Obesity in , antepartum Hypothyroidism affecting in third trimester Previous delivery, antepartum condition or complication History of prior with SGA complicated by tobacco use in third trimester Uterine size date discrepancy Supervision of - labor precautions and kick counts reviewed Offered RAQUEL before 05/02. Patient declines, but to reach out if she has concerns prior. RTO PRN. Barbra Lucas PA-C 04/27/2024 documented in this encounter Plan of Treatment Upcoming Encounters Date Type Department Care Team (Late st Contact Info) Description 05/09/2024 11:00 AM EDT [facility] [address] [place] [address] Barbie Feliz CRNP [address] [place] [address] 06/12/2024 10:00 AM EDT Office Visit Neuroendocrine, [place] [address] [place] [address] Clinic, Neuroendocrine Multidisciplinary [address] [place], [place] [phone] Health Maintenance Due Date Last Done Comments Hepatitis B Vaccine (1 of 3 - 19+ 3-dose series) 2008 COVID-19 Vaccine (1 - 2022-24 season) 2023 Influenza Vaccine (FLU shot) (#1) 2024 Depression Screening 12/11/2024 12/12/2023 TSH 03/26/2025 03/26/2024, 06/0 11/2023, 12/07/2023, Additional history exists Pap Smear 09/28/2025 09/28/2022 Diabetes Screening 11/22/2025 11/22/2022, 11/22/2022 Cervical Cancer Screening 09/28/2027 HPV/Co-Test 09/28/2027 09/28/2022 DTaP,Tdap,and Td Vaccines (2 - Td or Tdap) 07/26/2032 07/26/2022 HPV (Gardasil) Vaccine Aged Out No lo nger eligible based on patient's age to complete this topic MENINGOCOCCAL (MENACTRA/MENVEO) Aged Out No longer eligible based on patient's age to complete this topic Pneumococcal Vaccine: Pediatrics (0 to 5 Years) and At-Risk Patients (6 to 64 Years) Aged Out No longer eligible based on patient's age to complete this topic documented as of this encounter Medical Devices Not on filedocumented as of this encounter Visit Diagnoses Diagnosis Normal in third trimester- Primary Multigravida of advanced maternal age in third trimester Obesity in , antepartum Obesity complicating , childbirth, or the puerperium, antepartum condition or complication Hypothyroidism affecting in third trimester Previous delivery, antepartum condition or complication History of prior with SGA complicated by tobacco use in third trimester Uterine size date discrepancy Uterine size date discrepancy, antepartum condition or complication documented in this encounter Care Teams Colorer Relationship Specialty Start Date End Date Barbra Lord DO [address] [place] [address] PCP - General Family Medicine 01/06/23 documented as of this encounter
--- OUTSIDE RECORDS SUMMARY | 2024-05-02 12:53 | External Medical Summary | Summary of Care ---
Author Name Unknown Organization [facility] Address [address] [facility] [place] [address] Phone [phone] Care Team Providers Care Harness Worker Name Role Phone Barbra Lord DO Primary Care Provider Encounter Details Date Type Department Care Team (Late st Contact Info) Description 04/12/2024 Telephone Gynecology/Obstetrics [facility] [address] [facility] [place] [address] Barbie Feliz CRNP [address] [facility] [place] [address] Allergies No known active allergiesdocumented as of this encounter (statuses as of 04/16/2024) Medications Medication Sig Dispensed Refills Start Date End Date Status Levothyroxine Sodium 75 MCG Oral Tablet (Levoxyl) Take 1 Tablet by mouth in the morning. (at least 30 min prior to breakfast or other meds). 90 Tablet 3 09/16/2023 Active 28-0.8 MG Oral Tablet Take by mouth. Active Magnesium 200 MG Oral Tablet Chewable Take by mouth. Active Vitron-C 65-125 MG Oral Tablet (Iron-Vitamin C 65-125 mg per tab) Take 1 Tablet by mouth in the morning. 60 Tablet 1 02/13/2024 Active documented as of this encounter (statuses as of 04/16/2024) Active Problems Problem Noted Date Diagnosed Date [...] as of this encounter (statuses as of 04/16/2024) Resolved Problems Problem Noted Date Diagnosed Date [...] as of this encounter (statuses as of 04/16/2024) Immunizations Name Administration Dates Next Due TDAP [...] money to get more. Never true 11/28/2023 [place] Depression Scale Answer Date Recorded [place] Depression Scale Total 3 04/12/2024 The thought [...] No 11/28/2023 Does the household have a re gular source of income? (Household - for ages [...] on file documented as of this encounter Miscellaneous Notes * Telephone Encounter - Fay Goyal OSA - 04/12/2024 1:05 PM EDT Needs follow up 1 wk apt for 37 wks Please call for apt nothing available documented in this encounter Plan of Treatment Upcoming Encounters Date Type Department Care Team (Late st Contact Info) Description 04/19/2024 11:00 AM EDT Office Visit Gynecology/Obstetrics [facility] [address] [place] [address] Karyn Todd CRNP [address] [place] [address] 04/27/2024 2:15 PM EDT Office Visit Gynecology/Obstetrics [facility] [address] [place] [address] Barbra Lucas PA-C [address] [place] [address] [place] [address] 05/09/2024 11:00 AM EDT Office Visit Gynecology/Obstetrics [facility] [address] [place] [address] Barbie Feliz CRNP [address] [place] [address] 06/12/2024 10:00 AM EDT Office Visit Neuroendocrine, [place] [address] [place] [address] Clinic, Neuroendocrine Multidisciplinary [address] [place] [address] Health Maintenance Due Date Last Done Comments Hepatitis B Vaccine (1 of 3 - 19+ 3-dose series) 2008 COVID-19 Vaccine (2022- season) 2023 Influenza Vaccine (FLU shot) (#1) [...] Not on filedocumented as of this encounter Care Teams Harness Worker Relationship Specialty Start Date End Date Barbra Lord DO [address] [place] [address] PCP - General Family Medicine 01/06/23 documented as of this encounter
--- OUTSIDE RECORDS SUMMARY | 2024-05-02 12:53 | External Medical Summary | Summary of Care ---
Author Name Unknown Organization [facility] Address [address] [facility] [address] [place] [address] Phone [phone] Care Team Providers Care Engineering Inspector Name Role Phone Barbra Lord DO Primary Care Provider [phone] Reason for Visit * Reason Comments Return Visit Encounter Details Date Type Department Care Team (Late st Contact Info) Description 04/19/2024 11:00 AM EDT Office Visit Gynecology/Obstetric s [facility] [address] [place] [address] Karyn Todd CRNP [address] [place] [address] Normal in third trimester*; Obesity in , antepartum; Hypothyroidism affecting in third trimester; Multigravida of advanced maternal age in third trimester; Previous delivery, antepartum condition or complication; History of prior with SGA ; complicated by tobacco use in third trimester; Uterine size date discrepancy Allergies No known active allergiesdocumented as of this encounter (statuses as of 04/19/2024) Medications Medication Sig Dispensed Refills Start Date [...] the morning. 60 Tablet 1 02/13/2024 Active Magnesium 200 MG Oral Tablet Chewable Take by mouth. 04/19/2024 Discontinu ed (Medication List Clean Up) documented as of this encounter (statuses as of 04/19/2024) Active Problems Problem Noted Date Diagnosed Date [...] trimester growth Tobacco use complicating 10/17/2023 Overview: Erika encouraged cessation Hypothyroidism 09/29/2023 Hyperprolactinemia 07/21/2023 Pituitary microadenoma 04/19/2011 Estimated Date of Delivery Comme nts Yes 05/09/2024 Based on Ultraso und documented as of this encounter (statuses as of 04/19/2024) Resolved Problems Problem Noted Date Diagnosed Date [...] as of this encounter (statuses as of 04/19/2024) Immunizations Name Administration Dates Next Due TDAP [...] money to get more. Never true 11/28/2023 [place] Depression Scale Answer Date Recorded [place] Depression Scale Total 3 04/12/2024 The thought [...] Sign Reading Time Taken Comments Blood Pressure 118/60 04/19/2024 10:56 AM EDT Pulse - - Temperature - - Respiratory Rate - - Oxygen Saturation - - Inhaled Oxygen Concentration - - Weight 108.9 kg (240 lb) 04/19/2024 10:56 AM EDT Height - - Body Mass Index 38.74 04/12/2024 12:26 PM EDT documented in this encounter Progress Notes * Hiral Verdugo LPN - 04/19/2024 10:57 AM EDT 37w1d Denies vaginal bleeding/rom + movement Asking if we can provide work note for last working day to be 16- works at [employer] On feet all day. * Karyn Todd CRNP - 04/19/2024 10:56 AM EDT 37w1d Baby moving well. Denies ctx, leaking/bleeding. Lots of pelvic pressure and discomfort. Asking to stop work 04/27 - advised we do not have a medical reason to do so at this time. Reviewed comfort measures. Growth scan mid March - EFW 48th %ile, normal HARRISON, vertex. S>D today, will repeat u/s. Reviewed labor signs, FKC. Has C/S scheduled. 1 week return JIGNESH Ingram documented in this encounter Plan of Treatment Upcoming Encounters Date Type Department Care Team (Late st Contact Info) Description 04/27/2024 1:15 PM EDT [facility] [address] [facility] [place] [address] 04/27/2024 2:15 PM EDT Office Visit Gynecology/Obstetrics [facility] [address] [facility] [place] [address] Barbra Lucas PA-C [address] [place] [address] 05/09/2024 11:00 AM EDT Office Visit Gynecology/Obstetrics [facility] [address] [facility] [place] [address] Barbie Feliz CRNP [address] [facility] [place] [address] 06/12/2024 10:00 AM EDT Office Visit Neuroendocrine, [place] [address] [place], [place] [phone] Clinic, Neuroendocrine [facility] [address] [place], [place] [phone] Scheduled Orders Name Type Priority Associated Diagnoses Orde r Schedule US PREG FOLLOW-UP EACH FETUS Medical Imaging Routine Normal in third trimester Uterine size date discrepancy Expected: 04/19/2024 (Approximate), Expires: 05/20/2025 Health Maintenance Due Date Last Done Comments Hepatitis B Vaccine (1 of 3 - 19+ 3-dose series) 2008 COVID-19 Vaccine ( season) 2023 Influenza Vaccine (FLU shot) (#1) [...] Diagnoses Diagnosis Normal in third trimester- Primary Obesity in , antepartum Obesity complicating , childbirth, or the puerperium, antepartum condition or complication Hypothyroidism affecting in third trimester Multigravida of advanced maternal age in third trimester Previous delivery, antepartum condition or complication History of prior with SGA complicated by tobacco use in third trimester Uterine size date discrepancy Uterine size date discrepancy, antepartum condition or complication documented in this encounter Care Teams Engineering Inspector Relationship Specialty Start Date End Date Barbra Lord DO [address] [place] [address] PCP - General Family Medicine 01/06/23 documented as of this encounter
--- OUTSIDE RECORDS SUMMARY | 2024-05-02 12:54 | External Medical Summary ---
Author Name Unknown Address Unknown Organization K01:[facility] [place] - [address] [place] [address] Laboratory Report Ordering Provider Test Date Status RD FLYNN 03/26/2024 11:17:31 Final Observation Date Value Abnormality Reference (Units ) Status TSH 03/26/2024 11:17:31 0.61 0.27-4.20 (uIU/mL) Final Performing Location [facility] [address] [facility] [address]
--- OUTSIDE RECORDS SUMMARY | 2024-05-02 12:54 | External Medical Summary | Summary of Care ---
Author Name Unknown Organization [facility] Address [address] [facility] [place] [address] Phone [phone] Care Team Providers Care Simulation Tech Name Role Phone Barbra Lord DO Primary Care Provider Encounter Details Date Type Department Care Team (Late st Contact Info) Description 04/12/2024 Telephone Gynecology/Obstetrics [facility] [address] [facility] [place] [address] Barbie Feliz CRNP [address] [facility] [place] [address] Allergies No known active allergiesdocumented as of this encounter (statuses as of 04/12/2024) Medications Medication Sig Dispensed Refills Start Date [...] as of this encounter (statuses as of 04/12/2024) Active Problems Problem Noted Date Diagnosed Date [...] as of this encounter (statuses as of 04/12/2024) Resolved Problems Problem Noted Date Diagnosed Date [...] as of this encounter (statuses as of 04/12/2024) Immunizations Name Administration Dates Next Due TDAP [...] money to get more. Never true 11/28/2023 [place] Depression Scale Answer Date Recorded [place] Depression Scale Total 2 10/17/2023 The thought of harming myself has occurred to me . Never 10/17/2023 Childcare Answer Date Recorded Do you feel [...] 04/19/2024 11:00 AM EDT Office Visit Gynecology/Obstetrics [facility] [address] [place] [address] Karyn Todd CRNP [address] [place] [address] 05/09/2024 11:00 AM EDT Office Visit Gynecology/Obstetrics [facility] [address] [place] [address] Barbie Feliz CRNP [address] [place] [address] 06/12/2024 10:00 AM EDT Office Visit Neuroendocrine, [place] [address] [place] [address] Clinic, Neuroendocrine Multidisciplinary [address] [place] [address] Health Maintenance Due Date Last Done Comments Hepatitis B Vaccine (1 of 3 - 19+ 3-dose series) 2008 COVID-19 Vaccine ( - 2022-24 season) 2023 Influenza Vaccine (FLU shot) (#1) 2024 Depression Screening 12/11/2024 12/12/2023 TSH 03/26/2025 03/26/2024, 0611/2023, 12/07/2023, Additional history exists Pap Smear 09/28/2025 [...] filedocumented as of this encounter Care Teams Simulation Tech Relationship Specialty Start Date End Date Barbra Lord DO [address] [place] [address] PCP - General Family Medicine 01/06/23 documented as of this encounter
--- OUTSIDE RECORDS SUMMARY | 2024-05-02 12:54 | External Medical Summary | Summary of Care ---
Author Name Unknown Organization [facility] Address [address] [place] [address] Phone [phone] Care Team Providers Care Top Bottom Attaching Machine Operator Name Role Phone Barbra Lord DO Primary Care Provider [phone] Reason for Visit * Reason Comments Return Visit pre-op exam Encounter Details Date Type Department Care Team (Late st Contact Info) Description 04/12/2024 12:30 PM EDT Office Visit Gynecology/Obstetric [facility] [address] [facility] [place] [address] Sasha Choudhary MD [address] [place] [id number] 36 weeks gestation of *; High-risk , third trimester; Multigravida of advanced maternal age in third trimester; Obesity in , antepartum; Tobacco use affecting , antepartum; Hypothyroidism affecting in second trimester; History of section complicating ; Previous delivery, antepartum condition or complication; History of prior with SGA ; Unwanted fertility Allergies No known active allergiesdocumented as of this encounter (statuses as of 04/14/2024) Medications Medication Sig Dispensed Refills Start Date [...] as of this encounter (statuses as of 04/14/2024) Active Problems Problem Noted Date Diagnosed Date [...] as of this encounter (statuses as of 04/14/2024) Resolved Problems Problem Noted Date Diagnosed Date [...] as of this encounter (statuses as of 04/14/2024) Immunizations Name Administration Dates Next Due TDAP [...] money to get more. Never true 11/28/2023 [place] Depression Scale Answer Date Recorded [place] Depression Scale Total 3 04/12/2024 The thought [...] Sign Reading Time Taken Comments Blood Pressure 106/62 04/12/2024 12:26 PM EDT Pulse - - Temperature 36.9 C (98.4 F) 04/12/2024 12:26 PM E DT Respiratory Rate - - Oxygen Saturation - - Inhaled Oxygen Concentration - - Weight 109.3 kg (241 lb) 04/12/2024 12:26 PM EDT Height 167.6 cm (5' 6") 04/12/2024 12:26 PM EDT Body Mass Index 38.9 04/12/2024 12:26 PM EDT documented in this encounter Progress Notes * Sasha Choudhary MD - 04/12/2024 12:44 PM EDT Barbara Casiano is a 34 year old female here for her routine OB appointment at 36w1d Her Estimated Date of Delivery: 05/09/24 REVIEW OF SYSTEMS: She affirms movement. Denies vaginal bleeding, LOF, regular contractions, N/V, headaches [place] Depression Scale: [place] Depression Scale Total: 3 [place]on suicide question and score: Score of 3 = Yes, quite often. Score of 2 = Sometimes. Score of 1 = Hardly ever The thought of harming myself has occurred to me.: 0 PHYSICAL EXAM: Filed Vitals: 04/12/24 1226 BP: 106/62 Temp: 36.9 C (98.4 F) Weight: 109.3 kg (241 lb) Height: 1.676 m (5' 6") +FHT 145 bpm Fundal height 37 cm ASSESSMENT/PLAN: (Z30.09) Unwanted fertility Plan: Patient wants tubal sterilization at the time of . (O09.93) High-risk , third trimester Plan: OB Ultrasound done on 03/26/24EFW: 2330 g which is the 48th percentile. (O09.523) Multigravida of advanced maternal age in third trimester Plan: Q was low risk. (O99.210) Obesity in , antepartum Plan: Total weight gain is 17.7 kg so far in this . (O99.330) Tobacco use affecting , antepartum Plan: Smoking cessation counseling was done. (O99.282, E03.9) Hypothyroidism affecting in second trimester Plan: TSH Results: Lab Results Component Value Date/Time TSH - [facility] 0.61 03/26/2024 11:17 AM TSH - [facility] 0.62 02/13/2024 12:02 PM TSH - [facility] 1.04 12/07/2023 03:06 PM (O34.219) History of section complicating Plan: Patient plans delivery by repeat section. Patient is aware of risks of a including but not limited to bleeding, infection, injury to the bowel, bladder, ureters, any of the internal organs, deep venous thrombosis and pulmonary embolism. (Z87.59) History of prior with SGA Plan: OB Ultrasound done on 03/26/24 showed that growth is appropriate. (Z3A.36) 36 weeks gestation of (primary encounter diagnosis) Plan: GROUP B STREP CULTURE/PCR - GBS swab collected today Food Science Professor Documentation Patient offered is analyst and accepted. Name of is analyst: Sheree Yan - labor precautions and kick marcos ho - RTO in 1 week Sasha Choudhary MD documented in this encounter Nursing Notes * Juanis Dodge LPN - 04/12/2024 12:36 PM EDT 36w1d Pre-op, ERCS and BTL 05/02. GBS today. Denies concerns. documented in this encounter Miscellaneous Notes * Result Encounter Note - Sasha Choudhary MD - 04/14/2024 1:03 PM EDT Please kindly inform patient that her GBS culture was negative. documented in this encounter Plan of Treatment Upcoming Encounters Date Type Department Care Team (Late st Contact Info) Description 04/19/2024 11:00 AM EDT Office Visit Gynecology/Obstetrics [facility] [address] [place] [address] Karyn Todd CRNP [address] [place] [address] 05/09/2024 11:00 AM EDT Office Visit Gynecology/Obstetrics [facility] [address] [place] [address] Barbie Feliz CRNP [address] [place] [address] 06/12/2024 10:00 AM EDT Office Visit [facility] [place] [address] [place] [address] Clinic, Neuroendocrine Multidisciplinary [address] [place] [address] Health Maintenance Due Date Last Done Comments [...] Not on filedocumented as of this encounter Procedures Procedure Name Priority Date/Time Associated Diagnosis Comments GROUP B STREP CULTURE/PCR Routine 04/12/2024 1:08 PM EDT 36 weeks gestation of documented in this encounter Results * GROUP B STREP CULTURE/PCR (04/12/2024 1:08 PM EDT) Group B Strep PCR Result Negative Negative 04/13/2024 8:20 PM EDT [facility] [place]:No Group B Streptoco ccus detected by culture-enhanced PCR (amplified probe). GBS GBSCt 0.0 04/13/2024 8:20 PM EDT [facility] GBS SPCCt 30.8 04/13/2024 8:20 PM EDT LABORATORY [facility] Swab Rectum and vagina, CS / Unknown 04/12/2024 1:08 PM EDT 04/12/2024 1:08 PM EDT Sasha Jay Choudhary MD LAB MICRO - G ENERAL ORDERABLES LABORATORY [facility] [address] [facility] [place] [id number] documented in this encounter Visit Diagnoses Diagnosis 36 weeks gestation of - Primary state, incidental High-risk , third trimester Multigravida of advanced maternal age in third trimester Obesity in , antepartum Obesity complicating , childbirth, or the puerperium, antepartum condition or complication Tobacco use affecting , antepartum Hypothyroidism affecting in second trimester History of section complicating Previous delivery, unspecified as to episode of care or not applicable Previous delivery, antepartum condition or complication History of prior with SGA Unwanted fertility documented in this encounter Care Teams Top Bottom Attaching Machine Operator Relationship Specialty Start Date End Date Barbra Lord DO [address] [place] [address] PCP - General Family Medicine 01/06/23 documented as of this encounter
--- OUTSIDE RECORDS SUMMARY | 2024-05-02 12:54 | External Medical Summary ---
Author Name Unknown Address Unknown Organization [id number][place] [place] [address] [place] [address] Laboratory Report Ordering Provider Test Date Status JODEE CAMARILLO 03/26/2024 11:17:31 Final Observation Date Value Abnormality Reference (Units ) Status Iron 03/26/2024 11:17:31 118 33-151 (ug/dL) Final Iron-binding capacity 03/26/2024 11:17:31 496 Above high normal 250-425 (ug/dL) Final Transferrin Sat % 03/26/2024 11:17:31 24 15-55 (%) Final Performing Location [facility] [place] [address] [place] [address]
--- OUTSIDE RECORDS SUMMARY | 2024-05-02 12:54 | External Medical Summary ---
Author Name Unknown Address Unknown Organization [id number]:[facility]ATORY [facility] - [address] [place] [address] Laboratory Report Ordering Provider Test Date Status RD FLYNN 03/26/2024 11:17:31 Final Observation Date Value Abnormality Reference (Units ) Status T4, Free 03/26/2024 11:17:31 1.1 0.9-1.7 (n g/dL) Final Performing Location LABORATORY [facility] - [address] [place] [address]
--- OUTSIDE RECORDS SUMMARY | 2024-05-02 12:54 | External Medical Summary ---
Author Name Unknown Address Unknown Organization [id number]:[facility] [place] [address] [place] [address] Laboratory Report Ordering Provider Test Date Status JODEE CAMARILLO 03/26/2024 11:17:31 Final Observation Date Value Abnormality Reference (Units ) Status Ferritin 03/26/2024 11:17:31 19 13-150 (ng /mL) Final Performing Location [facility] [place] [address] [place] [address]
--- OUTSIDE RECORDS SUMMARY | 2024-05-02 12:54 | External Medical Summary | Summary of Care ---
Author Name Unknown Organization [facility] Address [address] [place] [facility] [address] Phone [phone] Care Team Providers Care Syrup Machine Laborer Name Role Phone Barbra Lord DO Primary Care Provider [phone] Reason for Visit * Reason Onset Date Comments Forms Request 04/12/2024 Encounter Details Date Type Department Care Team (Late st Contact Info) Description 04/12/2024 Telephone Gynecology/Obstetrics [facility] [address] [facility] [place] [address] Sasha Choudhary MD [address] [facility] [place] [address] Forms Request Allergies No known active allergiesdocumented as of [...] money to get more. Never true 11/28/2023 [facility] Depression Scale Answer Date Recorded [facility] Depression Scale Total 2 10/17/2023 The thought [...] encounter Miscellaneous Notes * Telephone Encounter - Juanis Dodge LPN - 04/12/2024 12:44 PM EDT FMLA forms received 04/12/2024 Would pt like forms faxed yes to Does pt need notified when done? no Patient Phone Numbers documented in this encounter Plan of Treatment Upcoming Encounters Date Type Department Care Team (Late st Contact Info) Description 05/09/2024 11:00 AM EDT Office Visit Gynecology/Obstetrics [facility] [address] [place] [address] Barbie Feliz CRNP [address] [place] [address] 06/12/2024 10:00 AM EDT [facility] [address] [facility] [place] [address] Clinic, Neuroendocrine Multidisciplinary [address] [place] [address] Health Maintenance Due Date Last Done Comments [...] filedocumented as of this encounter Care Teams Syrup Machine Laborer Relationship Specialty Start Date End Date Barbra Lord DO [address] [place] [address] PCP - General Family Medicine 01/06/23 documented as of this encounter
--- OUTSIDE RECORDS SUMMARY | 2024-05-02 12:54 | External Medical Summary ---
Author Name Unknown Address Unknown Organization K01[place] [facility] [place] [address] [facility] [place] [address] Laboratory Report Ordering Provider Test Date Status JODEE CAMARILLO 03/26/2024 11:17:31 Final Observation Date Value Abnormality Reference (Units ) Status SYNC LEUKOCYTES IN BLOOD BY AUTOMATED COUNT 03/26/2024 11:17:31 11.28 Above high normal 4.00-10.80 (K/uL) Final Segs 03/26/2024 11:17:31 72.5 40.0-75.0 (%) Final Lymphs % 03/26/2024 11:17:31 18.7 18.0-42.0 (%) Final Monos 03/26/2024 11:17:31 7.0 1.0-11.0 (%) Final Eosinophils 03/26/2024 11:17:31 0.9 0.0-6.0 (%) Final Basos 03/26/2024 11:17:31 0.2 0.0-2.0 (%) Final Immature Granulocyte, Percent 03/26/2024 11:17:31 0.7 0.0-2.0 (%) Final Absolute Segs 03/26/2024 11:17:31 8.18 Above high normal 1.80-7.70 (K/uL) Final Lymphs, absolute 03/26/2024 11:17:31 2.11 1.00-4.80 (K/ul) Final Monos, Abs 03/26/2024 11:17:31 0.79 0.00-1.10 (K/uL) Final Eos, Abs 03/26/2024 11:17:31 0.10 0.00-0.70 (K/uL) Final Basos, Abs 03/26/2024 11:17:31 0.02 0.00-0.20 (K/uL) Final Immature Granulocytes, Number 03/26/2024 11:17:31 0.08 0.00-0.20 (K/uL) Final Performing Location [facility] [facility] [place] [address] [facility] [address]
--- OUTSIDE RECORDS SUMMARY | 2024-05-02 12:54 | External Medical Summary | Summary of Care ---
Author Name Unknown Organization [facility] Address [address] [place] [address] Phone [phone] Care Team Providers Care Manager Park Name Role Phone Barbra Lord DO Primary Care Provider [phone] Reason for Visit * Reason Onset Date Comments Forms Request 04/12/2024 Encounter Details Date Type Department Care Team (Late st Contact Info) Description 04/12/2024 Telephone Gynecology/Obstetrics [facility] [address] [facility] [place] [address] Sasha Choudhary MD [address] [facility] [place] [address] Forms Request Allergies [...] money to get more. Never true 11/28/2023 [place] Depression Scale Answer Date Recorded [place] Depression Scale Total 3 04/12/2024 The thought [...] Encounter - Juanis Dodge LPN - 04/12/2024 4:34 PM EDT Form completed. Faxed to [phone] per pt request. Copies in scan bin, original in triage for pickup at next OV. * Telephone Encounter - Juanis Ddoge LPN - 04/12/2024 12:44 PM EDT FMLA forms received 04/12/2024 Would pt like forms faxed yes to Does pt need notified when done? no Patient Phone Numbers documented in this encounter Plan of Treatment Upcoming Encounters Date Type Department Care Team (Late st Contact Info) Description 04/19/2024 11:00 AM EDT Office Visit Gynecology/Obstetrics [facility] [address] [facility] [place] [address] Karyn Todd CRNP [address] [place] [address] 05/09/2024 11:00 AM EDT Office Visit Gynecology/Obstetrics [facility] [address] [facility] [place] [address] Barbie Feliz CRNP [address] [place] [address] 06/12/2024 10:00 AM EDT Office Visit Neuroendocrine, [place] [address] [place] [address] Clinic, Neuroendocrine Multidisciplinary [address] [place] [address] Health Maintenance Due Date Last Done Comments [...] filedocumented as of this encounter Care Teams Manager Park Relationship Specialty Start Date End Date Barbra Lord DO [address] [place] [address] PCP - General Family Medicine 01/06/23 documented as of this encounter
--- OUTSIDE RECORDS SUMMARY | 2024-05-02 12:54 | External Medical Summary | Summary of Care ---
Author Name Unknown Organization [facility] Address [address] [place] [address] Phone [phone] Care Team Providers Care Computer Help Desk Representative Name Role Phone Barbra Lord DO Primary Care Provider Encounter Details Date Type Department Care Team (Late st Contact Info) Description 04/12/2024 Telephone Gynecology/Obstetrics [facility] [address] [facility] [place] [address] Barbie Feliz CRNP [address] [facility] [place] [address] Allergies No known active allergiesdocumented as of [...] money to get more. Never true 11/28/2023 [place] Depression Scale Answer Date Recorded [place] Depression Scale Total 2 10/17/2023 The thought [...] 04/19/2024 11:00 AM EDT Office Visit Gynecology/Obstetrics [facility] [address] [place] [address] Karyn Todd CRNP [address] [place] [address] 05/09/2024 11:00 AM EDT Office Visit Gynecology/Obstetrics [facility] [address] [place] [address] Barbie Feliz CRNP [address] [place] [address] 06/12/2024 10:00 AM EDT Office Visit Neuroendocrine, [place] [address] [place] [address] Clinic, Neuroendocrine Multidisciplinary [address] [place] [address] Health Maintenance Due Date Last Done Comments [...] filedocumented as of this encounter Care Teams Computer Help Desk Representative Relationship Specialty Start Date End Date Barbra Lord DO [address] [place] [address] PCP - General Family Medicine 01/06/23 documented as of this encounter
--- OUTSIDE RECORDS SUMMARY | 2024-05-02 12:54 | External Medical Summary | Summary of Care ---
Author Name Unknown Organization [facility] Address [address] [place] [address] Phone [phone] Care Team Providers Care Buffing Turner And Counter Name Role Phone Barbra Lord DO Primary Care Provider Encounter Details Date Type Department Care Team (Late st Contact Info) Description 03/29/2024 Telephone Gynecology/Obstetrics [facility] [address] [place] [address] Trang Zayas [facility] [address] [place] [address] Allergies No known active allergiesdocumented as of this encounter (statuses as of 03/29/2024) Medications Medication Sig Dispensed Refills Start Date [...] as of this encounter (statuses as of 03/29/2024) Active Problems Problem Noted Date Diagnosed Date [...] as of this encounter (statuses as of 03/29/2024) Resolved Problems Problem Noted Date Diagnosed Date [...] as of this encounter (statuses as of 03/29/2024) Immunizations Name Administration Dates Next Due TDAP [...] money to get more. Never true 11/28/2023 [place] Depression Scale Answer Date Recorded [place] Depression Scale Total 2 10/17/2023 The thought [...] encounter Miscellaneous Notes * Telephone Encounter - Renee Mandel LPN - 03/29/2024 11:47 AM EDT Myg sent. I tried to call pt and phone would not connect * Telephone Encounter - Renee Mandel LPN - 03/29/2024 11:46 AM EDT ----- Message from Trang Zayas sent at 03/29/2024 11:14 AM EDT ----- Please let patient know her anemia is improving. She should continue her current oral iron regimen.Thanks! Trang Zayas CNM documented in this encounter Plan of Treatment Upcoming Encounters Date Type Department Care Team (Late st Contact Info) Description 04/12/2024 12:30 PM EDT Office Visit Gynecology/Obstetrics [facility] [address] [place] [address] Sasha Choudhary MD [address] [facility] [place] [address] 05/09/2024 11:00 AM EDT Office Visit [facility]necology[facility]stetrics [facility] [place] [address] Barbie Feliz CRNP [address] [place] [address] 06/12/2024 10:00 AM EDT Office Visit Neuroendocrine, [place] [address] [place], [place] [address] Clinic, Neuroendocrine [facility] [address] [place] [address] Health Maintenance Due Date Last Done Comments [...] filedocumented as of this encounter Care Teams Buffing Turner And Counter Relationship Specialty Start Date End Date Barbra Lord DO [address] [place] [address] PCP - General Family Medicine 01/06/23 documented as of this encounter
--- OUTSIDE RECORDS SUMMARY | 2024-05-02 12:54 | External Medical Summary | Summary of Care ---
Author Name Unknown Organization [facility] Address [address] [place] [facility] [place] [address] Phone [phone] Care Team Providers Care Hole Digger Name Role Phone Barbra Lord DO Primary Care Provider [phone] Reason for Visit * Reason Comments Outpatient Testing Encounter Details Date Type Department Care Team (Late st Contact Info) Description 03/26/2024 11:20 AM EDT Laboratory Laboratory, [facility] [address] [facility] [place] [id number] [facility] [address] Primary hypothyroidism; Hirsutism; Prolactinoma (HCC); Thyroid disease during in second trimester; Antepartum anemia Allergies No known active allergiesdocumented as of this encounter (statuses as of 03/26/2024) Medications Medication Sig Dispensed Refills Start Date [...] as of this encounter (statuses as of 03/26/2024) Active Problems Problem Noted Date Diagnosed Date Antepartum anemia 02/13/2024 Overview: Hgb 11.2 at 27w5d. Vitron C once daily. Repeat CBC at 32 weeks. Normal 10/17/2023 Obesity in , antepartum 10/17/2023 [...] trimester growth Tobacco use complicating 10/17/2023 Overview: [place], encouraged cessation Hypothyroidism 09/29/2023 Hyperprolactinemia 07/21/2023 Pituitary microadenoma 04/19/2011 Estimated Date of Delivery Comme nts Yes 05/09/2024 Based on Ultraso und documented as of this encounter (statuses as of 03/26/2024) Resolved Problems Problem Noted Date Diagnosed Date [...] as of this encounter (statuses as of 03/26/2024) Immunizations Name Administration Dates Next Due TDAP [...] money to get more. Never true 11/28/2023 [place] Depression Scale Answer Date Recorded [place] Depression Scale Total 2 10/17/2023 The thought [...] on file documented as of this encounter Plan of Treatment Upcoming Encounters Date Type Department Care Team (Late st Contact Info) Description 04/12/2024 12:30 PM EDT Office Visit Gynecology/Obstetrics [facility] [address] [facility] [place] [address] Sasha Choudhary MD [address] [place] [address] 06/12/2024 10:00 AM EDT Office Visit Neuroendocrine, [place] [address] [place] [address] Clinic, Neuroendocrine Multidisciplinary [address] [place] [address] Pending Results Name Type Priority Associated Diagnoses Date /Time TSH WITH FREE T4 IF INDICATED Lab Routine Primary hypothyroidism 03/26/2024 11:17 AM EDT T4, FREE Lab Routine Thyroid disease during in second trimester Prolactinoma (HCC) 03/26/2024 11:17 AM EDT CBC WITH WBC DIFFERENTIAL AND ANEMIA REFLEX WORKUP Lab Routine Antepartum anemia 03/26/2024 11:17 AM EDT ANEMIA CBC Lab Routine Antepartum anemia 03/26/2024 11:17 AM EDT DIFFERENTIAL, AUTOMATED Lab Routine Antepartum anemia 03/26/2024 11:17 AM EDT ANEMIA REFLEX CHEMISTRY HOLD Lab Routine Antepartum anemia 03/26/2024 11:17 AM EDT Health Maintenance Due Date Last Done Comments Hepatitis B Vaccine (1 of 3 - 19+ 3-dose series) 2008 COVID-19 Vaccine (1 - 2022-24 season) 2023 Influenza Vaccine (FLU shot) (#1) 2024 Depression Screening 12/11/2024 12/12/2023 TSH 02/12/2025 02/13/2024, 11/11, 10/17/2023, Additional history exists Pap Smear 09/28/2025 09/28/2022 Cervical Cancer Screening 09/28/2027 HPV/Co-Test 09/28/2027 09/28/2022 [...] as of this encounter Visit Diagnoses Diagnosis Primary hypothyroidism Unspecified hypothyroidism Hirsutism Prolactinoma (HCC) Benign neoplasm of pituitary gland and craniopharyngeal duct (pouch) Thyroid disease during in second trimester Antepartum anemia Anemia, antepartum documented in this encounter Care Teams Hole Digger Relationship Specialty Start Date End Date Barbra Lord DO [address] [place] [address] PCP - General Family Medicine 01/06/23 documented as of this encounter
--- OUTSIDE RECORDS SUMMARY | 2024-05-02 12:54 | External Medical Summary ---
Author Name Unknown Address Unknown Organization K01:LAB[facility]ORY [facility] [place] [address] [place] [address] Laboratory Report Ordering Provider Test Date Status JODEE CAMARILLO 03/26/2024 11:17:31 Final Observation Date Value Abnormality Reference (Units ) Status Retic, % (auto) 03/26/2024 11:17:31 1.97 Above high normal 0.80-1.90 (%) Final Reticulocytes, Absolute 03/26/2024 11:17:31 84.7 31.3-100.1 (K/uL) Final Reticulocyte fraction, immature 03/26/2024 11:17:31 24.8 Above high normal 2.5-20.6 (%) Final Reticulocyte HGB 03/26/2024 11:17:31 28.4 Below low normal 29.7-37.4 (pg) Final Performing Location LABORATORY [facility] [place] - [address] [place] [address]
--- OUTSIDE RECORDS SUMMARY | 2024-05-02 12:54 | External Medical Summary ---
Author Name Unknown Address Unknown Organization K01:[facility] [place] [address] [place] [address] Laboratory Report Ordering Provider Test Date Status JODEE CAMARILLO 03/26/2024 11:17:31 Final Observation Date Value Abnormality Reference (Units ) Status Creatinine 03/26/2024 11:17:31 0.6 0.5-1.0 (mg/dL) Final Glomerular filtration rate/1.73 sq M.predicted [Volume Rate/Area] in Serum, Plasma or Blood by Creatinine-based formula (CKD-EPI) 03/26/2024 11:17:31 >90 >=60 (mL/min) Final eGFR is calculated based on the CKD-EPI 2020 equation Performing Location [facility] [place] [address] [place] [address]
--- OUTSIDE RECORDS SUMMARY | 2024-05-02 12:54 | External Medical Summary ---
Author Name Unknown Address Unknown Organization K01:LABORATORY [facility] [place] - [facility] [address] [place] [address] Laboratory Report Ordering Provider Test Date Status JODEE CAMARILLO 03/26/2024 11:17:31 Final Observation Date Value Abnormality Reference (Units ) Status WBC, Total 03/26/2024 11:17:31 11.28 Above high normal 4 .00-10.80 (K/uL) Final RBC 03/26/2024 11:17:31 4.37 3.85-5.15 (M/uL) Final Hemoglobin 03/26/2024 11:17:31 11.8 Below low normal 12 .0-15.3 (g/dL) Final Anemia reflex testing trigge rs on a HGB < 12.0 for Females and HGB < 13.0 for Males in accordance with the WHO Anemia Guidelines
Anemia reflex testing triggers on a HGB < 12.0 for Females and HGB < 13.0 for Males in accordance with the WHO Anemia Guidelines HCT 03/26/2024 11:17:31 38.1 36.0-45.2 (%) Final MCV 03/26/2024 11:17:31 87.2 81.5-97.5 (fL) Final MCH 03/26/2024 11:17:31 27.0 27.0-34.0 (pg) Final MCHC 03/26/2024 11:17:31 31.0 32.0-36.0 (g/dL) Final RDW 03/26/2024 11:17:31 13.0 11.5-15.5 (%) Final Platelets 03/26/2024 11:17:31 346 140-400 (K /uL) Final MPV 03/26/2024 11:17:31 11.7 6.6-11.1 ( fL) Final Nucleated erythrocytes/100 leukocytes [Ratio] in Blood by Automated count 03/26/2024 11:17:31 0 <=0 (/100 WBCs) Fi [facility] Performing Location LABORATORY [facility] [place] - [address] [facility] [address]
--- OUTSIDE RECORDS SUMMARY | 2024-05-02 12:54 | External Medical Summary | Summary of Care ---
Author Name Unknown Organization [facility] Address [address] [address] Phone [phone] Care Team Providers Care Pest Controller Name Role Phone Barbra Lord DO Primary Care Provider Reason for Visit * Reason Comments Return Visit Encounter Details Date Type Department Care Team (Late st Contact Info) Description 03/26/2024 10:45 AM EDT Office Visit Gynecology/Obstetric s [facility] [address] [facility] [place] [address] Barbra Lucas PA-C [address] [facility] [place] [id number] High-risk , third trimester*; Multigravida of advanced maternal age in third trimester; Obesity in , antepartum; Class 1 obesity; Anemia during in third trimester; Hypothyroidism affecting in third trimester; History of prior with SGA ; Previous delivery, antepartum condition or complication; Tobacco use affecting , antepartum Allergies No known active allergiesdocumented as of [...] money to get more. Never true 11/28/2023 [place] Depression Scale Answer Date Recorded [place] Depression Scale Total 2 10/17/2023 The thought [...] 11/28/2023 Does the household have a re lar source of income? (Household - for ages [...] Sign Reading Time Taken Comments Blood Pressure 94/62 03/26/2024 10:06 AM EDT Pulse - - Temperature - - Respiratory Rate - - Oxygen Saturation - - Inhaled Oxygen Concentration - - Weight 106.7 kg (235 lb 3.2 oz) 024 10:06 AM EDT Height 167.6 cm (5' 6") 03/26/2024 10:0 6 AM EDT Body Mass Index 37.96 03/26/2024 10:06 AM EDT documented in this encounter Progress Notes * Barbra Lucas PA-C - 03/26/2024 10:36 AM EDT Barbara Casiano is a 33 year old female here for her routine OB appointment at 33w5d Her Estimated Date of Delivery: 05/09/24 She is planning ERCS and BTL this . She is scheduled with Dr. Kenrick MD 04/12 to discuss and sign consents. Able to schedule her today for ERCS and BTL May 02. Can be changed based on provider recommendations if needed. REVIEW OF SYSTEMS She affirms movement. Denies vaginal bleeding, LOF, contractions, N/V, headaches, vision changes, chest pain, RUQ pain. PHYSICAL EXAM Filed Vitals: 03/26/24 1006 BP: 94/62 Weight: 106.7 kg (235 lb 3.2 oz) Height: 1.676 m (5' 6") +FHT 130s Fundal height 34 cm ASSESSMENT/PLAN High-risk , third trimester (Primary) Multigravida of advanced maternal age in third trimester Obesity in , antepartum Class 1 obesity Anemia during in third trimester - Needs repeat CBC/TSH now. Orders are already in and patient plans to complete following appointment. Hypothyroidism affecting in third trimester History of prior with SGA - Growth U/S completed today. Finalized report not in at the time of her visit, but preliminary shows normal growth and fluid levels. Previous delivery, antepartum condition or complication Tobacco use affecting , antepartum Supervision of - labor precautions and kick counts reviewed RTO in 2 weeks with to discuss /BTL. Barbra Lucas PA-C 03/26/2024 documented in this encounter Nursing Notes * Juanis Dodge LPN - 03/26/2024 10:06 AM EDT 33w5d Had growth US today- 48%, HARRISON 19.6cm. Given labor instructions. documented in this encounter Plan of Treatment Upcoming Encounters Date Type Department Care Team (Late st Contact Info) Description 04/12/2024 12:30 PM EDT Office Visit Gynecology/Obstetrics [address] [place] [address] Sasha Choudhary MD [address] [facility] [place] [address] 06/12/2024 10:00 AM EDT Office Visit Neuroendocrine, [place] [address] [place] [address] Clinic, Neuroendocrine Multidisciplinary [address] [place] [address] Health Maintenance Due Date Last Done Comments Hepatitis B Vaccine (1 of 3 - 19+ 3-dose series) 2008 COVID-19 Vaccine (2022-24 season) 2023 Influenza Vaccine (FLU shot) (#1) [...] as of this encounter Visit Diagnoses Diagnosis High-risk , third trimester- Primary Multigravida of advanced maternal age in third trimester Obesity in , antepartum Obesity complicating , childbirth, or the puerperium, antepartum condition or complication Class 1 obesity Anemia during in third trimester Hypothyroidism affecting in third trimester History of prior with SGA Previous delivery, antepartum condition or complication Tobacco use affecting , antepartum documented in this encounter Care Teams Pest Controller Relationship Specialty Start Date End Date Pop, Barbra Priscilla, DO [address] [place] [address] PCP - General Family Medicine 01/06/23 documented as of this encounter
--- OUTSIDE RECORDS SUMMARY | 2024-05-02 12:54 | External Medical Summary ---
Author Name Unknown Address Unknown Organization K01:[place] [place] [address] [place] [address] Laboratory Report Ordering Provider Test Date Status IVY GONZALEZ 04/12/2024 13:08:40 Final Observation Date Value Abnormality Reference (Units ) Status Streptococcus agalactiae DNA [Presence] in Specimen by GUME with probe detection 04/12/2024 13:08:40 Negative Negative Final No Group B Streptococcus det ected by culture-enhanced PCR (amplified probe). GBS GBSCT - [facility] 04/12/2024 13:08:40 0.0 Final GBS SPCCT - [facility] 04/12/2024 13:08:40 30.8 Final Performing Location [facility] [place] [place] [address] [place] [address]
--- OUTSIDE RECORDS SUMMARY | 2024-05-02 12:55 | External Medical Summary | Summary of Care ---
Author Name Unknown Organization [facility] Address [address] [place] [address] Phone [phone] Care Team Providers Care Ciaio Counter Molder Name Role Phone Barbra Lord DO Primary Care Provider Encounter Details Date Type Department Care Team (Late st Contact Info) Description 02/29/2024 Telephone Gynecology/Obstetrics [facility] [address] [facility] [place] [address] Trang Zayas, [facility] [address] [facility] [place] [phone] Allergies No known active allergiesdocumented as of this encounter (statuses as of 02/29/2024) Medications Medication Sig Dispensed Refills Start Date [...] as of this encounter (statuses as of 02/29/2024) Active Problems Problem Noted Date Diagnosed Date [...] as of this encounter (statuses as of 02/29/2024) Resolved Problems Problem Noted Date Diagnosed Date [...] as of this encounter (statuses as of 02/29/2024) Immunizations Name Administration Dates Next Due TDAP [...] money to get more. Never true 11/28/2023 [place] Depression Scale Answer Date Recorded [place] Depression Scale Total 2 10/17/2023 The thought [...] encounter Miscellaneous Notes * Telephone Encounter - Dinora Charles LPN - 02/29/2024 8:55 AM EDT ----- Message from Trang Zayas sent at 02/28/2024 5:16 PM EDT ----- Please let patient know her baby's growth was normal and fluid level was normal. Baby was breech, but baby has plenty of time to hopefully turn around. Thanks! Trang Zayas CNM documented in this encounter Plan of Treatment Upcoming Encounters Date Type Department Care Team (Late st Contact Info) Description 03/07/2024 11:40 AM EDT [facility] [address] [facility] [place] [address] Rosalind Curtis DPM [address] [place] [phone] 03/13/2024 10:00 AM EDT Office Visit Gynecology/Obstetrics [facility] 132 [facility] [place] [address] Barbra Lucas PA-C [address] [place] [address] 03/26/2024 9:45 AM EDT Imaging Radiology [facility] 2nd Floor, [place] [address] [facility] [place] [address] 03/26/2024 10:45 AM EDT Office Visit Gynecology/Obstetrics [facility] 132 [facility] [place] [address] Barbra Lucas PA-C [address] [place] [address] 06/12/2024 10:00 AM EDT Office Visit Neuroendocrine, [place] [address] [place] [address] Clinic, Neuroendocrine Multidisciplinary [address] [place] [address] Health Maintenance Due Date Last Done Comments Hepatitis B (1 of 3 - 19+ 3-dose series) 2008 COVID-19 Vaccine ( - 2022- season) 2023 Influenza Vaccine (FLU shot) (Season Ended) 2024 Depression Screening 12/11/2024 12/12/2023 TSH 02/12/2025 02/13/2024, 11/11, 10/17/2023, Additional history exists Pap Smear 09/28/2025 09/28/2022 Cervical Cancer Screening 09/28/2027 HPV/Co-Test 09/28/2027 09/28/2022 DTaP,Tdap,and Td Vaccines (2 - Td or Tdap) 07/26/2032 07/26/2022 GARDASIL-HPV IMMUNIZATION SERIES Aged Out No longer eligible based on [...] filedocumented as of this encounter Care Teams Ciaio Counter Molder Relationship Specialty Start Date End Date Barbra Lord DO [address] [place] [address] PCP - General Family Medicine 01/06/23 documented as of this encounter
--- OUTSIDE RECORDS SUMMARY | 2024-05-02 12:55 | External Medical Summary | Summary of Care ---
Author Name Unknown Organization [facility] Address [address] [place] [address] Phone [phone] Care Team Providers Care Business Asst Name Role Phone Barbra Lord DO Primary Care Provider [phone] Reason for Visit * Reason Comments Outpatient Testing Encounter Details Date Type Department Care Team (Late st Contact Info) Description 02/13/2024 11:00 AM EDT Laboratory Laboratory, [facility] [address] [place] [phone] [facility] 132 [place] [address] Arrived Allergies No known active allergiesdocumented as of this encounter (statuses as of 02/13/2024) Medications Medication Sig Dispensed Refills Start Date End Date Status Levothyroxine Sodium 75 MCG Oral Tablet (Levoxyl) Take 1 Tablet by mouth in the morning. (at least 30 min prior to breakfast or other meds). 90 Tablet 3 09/16/2023 Active 28-0.8 MG Oral Tablet Take by mouth. Active Magnesium 200 MG Oral Tablet Chewable Take by mouth. Active documented as of this encounter (statuses as of 02/13/2024) Active Problems Problem Noted Date Diagnosed Date Normal 10/17/2023 Obesity in , antepartum 10/17/2023 [...] as of this encounter (statuses as of 02/13/2024) Resolved Problems Problem Noted Date Diagnosed Date [...] as of this encounter (statuses as of 02/13/2024) Immunizations Name Administration Dates Next Due TDAP [...] money to get more. Never true 11/28/2023 [place] Depression Scale Answer Date Recorded [place] Depression Scale Total 2 10/17/2023 The thought of harming myself has occurred to me . Never 10/17/2023 Estimated Date of Delivery Comme nts Yes [...] Care Team (Late st Contact Info) Description 02/13/2024 11:30 AM EDT Office Visit [facility]necology[facility] Geoffrey Buck [address] [place] [address] Janel Cummings PA-C [address] [place] [address] Normal *; Obesity in , antepartum; Hypothyroidism affecting ; AMA (advanced maternal age) multigravida 35+; Previous delivery, antepartum condition or complication; History of prior with SGA ; Tobacco use complicating 06/12/2024 10:00 AM EDT Office Visit [place] [address] [place] [address] [place] [address] Clinic, Neuroendocrine Multidisciplinary [address] [place] [address] Health Maintenance Due Date Last Done Comments Hepatitis B (1 of 3 - 19+ 3-dose series) 2008 COVID-19 Vaccine (1 - 2022-24 season) 2023 Influenza Vaccine (FLU shot) (Season Ended) 2024 TSH 12/06/2024 12/07/2023, 02/0 01/2024, 09/19/2023, Additional history exists Depression Screening 12/11/2024 12/12/2023 Pap Smear 09/28/2025 09/28/2022 Cervical Cancer Screening [...] filedocumented as of this encounter Care Teams Business Asst Relationship Specialty Start Date End Date Barbra Lord DO [address] [place] [address] PCP - General Family Medicine 01/06/23 documented as of this encounter
--- OUTSIDE RECORDS SUMMARY | 2024-05-02 12:55 | External Medical Summary | Summary of Care ---
Author Name Unknown Organization [facility] Address [address] [place] [address] Phone [phone] Care Team Providers Care Steeler Name Role Phone Barbra Lord DO Primary Care Provider [phone] Reason for Visit * Reason Onset Date Comments MyCode Consent 02/28/2024 Encounter Details Date Type Department Care Team (Late st Contact Info) Description 02/28/2024 Orders Only Outcomes Research Department [address] [place] [address] Charla Jasso CHRA MyCode Research Other*[id number]* Allergies No known active allergiesdocumented as of this encounter (statuses as of 02/28/2024) Medications Medication Sig Dispensed Refills Start Date [...] as of this encounter (statuses as of 02/28/2024) Active Problems Problem Noted Date Diagnosed Date [...] as of this encounter (statuses as of 02/28/2024) Resolved Problems Problem Noted Date Diagnosed Date [...] as of this encounter (statuses as of 02/28/2024) Immunizations Name Administration Dates Next Due TDAP [...] money to buy more. Never true 11/28/19 Within the past 12 months, t he food you bought just didn't last and you didn't have money to get more. Never true 11/28/2023 [place] Depression Scale Answer Date Recorded [place] Depression Scale Total 2 10/17/2023 The thought [...] on file documented as of this encounter Progress Notes * Charla Jasso CHRA - 02/28/2024 10:06 AM EDT [employer] Consent Documentation Barbara Casiano provided consent/authorization to participate in the [employer] Project. documented in this encounter Plan of Treatment Upcoming Encounters Date Type Department Care Team (Late st Contact Info) Description 02/28/2024 11:00 AM EDT Office Visit Gynecology/Obstetrics [facility] [address] [place] [address] Shashi Feng MD [address] [place] [phone] Arrived 03/07/2024 11:40 AM EDT [facility] [address] [place] [address] Rosalind Curtis DPM [address] [place] [address] [place] [address] 06/12/2024 10:00 AM EDT Office Visit Neuroendocrine, [place] [address] [place] [address] Clinic, Neuroendocrine Multidisciplinary [address] [place] [address] Scheduled Orders Name Type Priority Associated Diagnoses Orde r Schedule MYCODE INITIAL ADULT Lab Routine MyCode Research Other*[id number] Expected: 02/28/2024 (Approximate), Expires: 03/19/2025 Health Maintenance Due Date Last Done Comments Hepatitis B (1 of 3 - 19+ 3-dose series) 2008 COVID-19 Vaccine ( season) 2023 Influenza Vaccine (FLU shot) (Season [...] as of this encounter Visit Diagnoses Diagnosis MyCode Research Other*[id number]- Primary documented in this encounter Care Teams Steeler Relationship Specialty Start Date End Date Barbra Lord DO [address] [place] [address] PCP - General Family Medicine 01/06/23 documented as of this encounter
--- OUTSIDE RECORDS SUMMARY | 2024-05-02 12:55 | External Medical Summary ---
Author Name Unknown Address Unknown Organization K01:LABORATORY [facility] [place] [address] [facility] [address] [place] [address] Laboratory Report Ordering Provider Test Date Status JODEE CAMARILLO 02/13/2024 12:02:59 Final Observation Date Value Abnormality Reference (Units ) Status SYNC LEUKOCYTES IN BLOOD BY AUTOMATED COUNT 02/13/2024 12:02:59 12.16 Above high normal 4.00-10.80 (K/uL) Final Segs 02/13/2024 12:02:59 72.8 40.0-75.0 (%) Final Lymphs % 02/13/2024 12:02:59 18.4 18.0-42.0 (%) Final Monos 02/13/2024 12:02:59 6.8 1.0-11.0 (%) Final Eosinophils 02/13/2024 12:02:59 1.3 0.0-6.0 (%) Final Basos 02/13/2024 12:02:59 0.2 0.0-2.0 (%) Final Immature Granulocyte, Percent 02/13/2024 12:02:59 0.5 0.0-2.0 (%) Final Absolute Segs 02/13/2024 12:02:59 8.84 Above high normal 1.80-7.70 (K/uL) Final Lymphs, absolute 02/13/2024 12:02:59 2.24 1.00-4.80 (K/ul) Final Monos, Abs 02/13/2024 12:02:59 0.83 0.00-1.10 (K/uL) Final Eos, Abs 02/13/2024 12:02:59 0.16 0.00-0.70 (K/uL) Final Basos, Abs 02/13/2024 12:02:59 0.03 0.00-0.20 (K/uL) Final Immature Granulocytes, Number 02/13/2024 12:02:59 0.06 0.00-0.20 (K/uL) Final Performing Location LAB[facility]ORY [facility] [place] - [address] [facility] [address]
--- OUTSIDE RECORDS SUMMARY | 2024-05-02 12:55 | External Medical Summary ---
Author Name Unknown Address Unknown Organization K01:LABORATORY [facility] - [address] [place] [address] Laboratory Report Ordering Provider Test Date Status RD FLYNN 02/13/2024 12:02:59 Final Observation Date Value Abnormality Reference (Units ) Status T4, Free 02/13/2024 12:02:59 1.1 0.9-1.7 (n g/dL) Final Performing Location LABORATORY [facility] - [address] [place] [address]
--- OUTSIDE RECORDS SUMMARY | 2024-05-02 12:55 | External Medical Summary | Summary of Care ---
Author Name Unknown Organization [facility] Address [address] [facility] [place] [address] Phone [phone] Care Team Providers Care Pediatric Licensed Practical Nurse Name Role Phone Barbra Lord DO Primary Care Provider Reason for Visit * Reason Comments Return Visit Encounter Details Date Type Department Care Team (Late st Contact Info) Description 02/13/2024 11:30 AM EDT Office Visit Gynecology/Obstetric s Geoffrey Buck [address] [place] [address] Janel Cummings PA-C [address] [place] [address] Normal in second trimester*; Obesity in , antepartum; Hypothyroidism affecting in second trimester; Multigravida of advanced maternal age in second trimester; Previous delivery, antepartum condition or complication; History of prior with SGA ; complicated by tobacco use in second trimester Allergies No known active allergiesdocumented as of [...] trimester growth Tobacco use complicating 10/17/2023 Overview: Erika, encouraged cessation Hypothyroidism 09/29/2023 Hyperprolactinemia 07/21/2023 Pituitary [...] money to get more. Never true 11/28/2023 [place] Depression Scale Answer Date Recorded [place] Depression Scale Total 2 10/17/2023 The thought [...] Sign Reading Time Taken Comments Blood Pressure 108/64 02/13/2024 11:23 AM EDT Pulse - - Temperature - - Respiratory Rate - - Oxygen Saturation - - Inhaled Oxygen Concentration - - Weight 107.3 kg (236 lb 9.6 oz) 024 11:23 AM EDT Height - - Body Mass Index 38.19 01/16/2024 1:11 PM EDT documented in this encounter Progress Notes * Janel Cummings PA-C - 02/13/2024 11:42 AM EDT 27w5d Completing third tri labs today. Thyroid labs through endocrinology. Will repeat today as well. Current on Levoxyl 75 mcg daily. Reviewed third tri growth d/t history of SGA, will complete with next visit. Counseled on TDaP, pt would like to defer today, and complete with next visit. Denies VB, LOF, contractions. Baby is active. RTC in 2 weeks Janel Cummings PA-C * Sheree Yan MED ASSIST - 02/13/2024 11:23 AM EDT 27w5d No concerns Vaginal bleeding: no ROM: no movement: present Contractions: no Nausea: no Vomiting: no Headaches: no Declines TDAP today. documented in this encounter Plan of Treatment Upcoming Encounters Date Type Department Care Team (Late st Contact Info) Description 02/28/2024 10:00 AM EDT Imaging Radiology [facility] 132 [facility] [place] [address] 02/28/2024 11:00 AM EDT Office Visit Gynecology/Obstetrics [facility] 132 [facility] [place] [address] Shashi Feng MD 132 [facility] [place] [phone] 06/12/2024 10:00 AM EDT Office Visit Neuroendocrine, [place] [address] [place] [facility] [place] [address] Clinic, Neuroendocrine Multidisciplinary [address] [facility] [place] [id number] Scheduled Orders Name Type Priority Associated Diagnoses Orde r Schedule US PREG FOLLOW-UP EACH FETUS Medical Imaging Routine Normal in second trimester Expected: 02/27/2024, Expires: 03/14/2025 Health Maintenance Due Date Last Done Comments [...] this encounter Visit Diagnoses Diagnosis Normal in second trimester- Primary Obesity in , antepartum Obesity complicating , childbirth, or the puerperium, antepartum condition or complication Hypothyroidism affecting in second trimester Multigravida of advanced maternal age in second trimester Previous delivery, antepartum condition or complication History of prior with SGA complicated by tobacco use in second trimester documented in this encounter Care Teams Pediatric Licensed Practical Nurse Relationship Specialty Start Date End Date Barbra Lord DO [address] [place] [address] PCP - General Family Medicine 01/06/23 documented as of this encounter
--- OUTSIDE RECORDS SUMMARY | 2024-05-02 12:55 | External Medical Summary | Summary of Care ---
Author Name Unknown Organization [facility] Address [address] [place] [address] Phone [phone] Care Team Providers Care Cyber Forensics Analyst Name Role Phone Barbra Lord DO Primary Care Provider [phone] Encounter Details Date Type Department Care Team (Late st Contact Info) Description 02/13/2024 Orders Only Laboratory, [facility] 132 [facility] [place] [address] Trang Zayas, [facility] 400 [facility] [place] [phone] Antepartum anemia* Allergies No known active allergiesdocumented as of [...] 1 Tablet by mouth in the morning. 90 Tablet 1 02/13/2024 Active documented as of [...] money to get more. Never true 11/28/2023 [place] Depression Scale Answer Date Recorded [place] Depression Scale Total 2 10/17/2023 The thought [...] Description 02/28/2024 10:00 AM EDT Imaging Radiology [facility] 132 [facility] [place] [address] 02/28/2024 11:00 AM EDT Office Visit Gynecology/Obstetrics [facility] [place] [address] Shashi Feng MD [address] [place] [phone] 06/12/2024 10:00 AM EDT Office Visit Neuroendocrine, [place] [address] [place] [address] Clinic, Neuroendocrine [facility] [address] [place] [address] Scheduled Orders Name Type Priority Associated Diagnoses Orde r Schedule CBC WITH WBC DIFFERENTIAL AND ANEMIA REFLEX WORKUP Lab Routine Antepartum anemia Expected: 03/14/2024, Expires: 02/12/2025 Health Maintenance Due Date Last Done Comments Hepatitis B (1 of 3 - 19+ 3-dose series) 2008 COVID-19 Vaccine ( - season) 2023 Influenza Vaccine (FLU shot) (Season [...] as of this encounter Visit Diagnoses Diagnosis Antepartum anemia- Primary Anemia, antepartum documented in this encounter Care Teams Cyber Forensics Analyst Relationship Specialty Start Date End Date Barbra Lord DO [address] [place] [address] PCP - General Family Medicine 01/06/23 documented as of this encounter
--- OUTSIDE RECORDS SUMMARY | 2024-05-02 12:55 | External Medical Summary | Summary of Care ---
Author Name Unknown Organization [facility] Address [address] [place] [facility] [place] [address] Phone [phone] Care Team Providers Care Tubing Machine Tender Name Role Phone Barbra Lord DO Primary Care Provider +1 [phone] Reason for Visit * Reason Comments Outpatient Testing Encounter Details Date Type Department Care Team (Late st Contact Info) Description 02/13/2024 11:00 AM EDT Laboratory [facility], [facility] [address] [facility] [phone] [facility] [address] [place] [address] Thyroid disease during in second trimester; Prolactinoma (HCC); High-risk , second trimester Allergies No known active allergiesdocumented [...] money to get more. Never true 11/28/2023 [place] Depression Scale Answer Date Recorded [place] Depression Scale Total 2 10/17/2023 The thought [...] Description 02/28/2024 10:00 AM EDT Imaging Radiology [facility] [address] [place] [address] 02/28/2024 11:00 AM EDT Office Visit Gynecology/Obstetrics [facility] [address] [place] [address] Shashi Feng MD [address] [place] [phone] 06/12/2024 10:00 AM EDT Office Visit Neuroendocrine, [place] [address] [place] [address] Clinic, Neuroendocrine [facility] [address] [place] [address] Pending Results Name Type Priority Associated Diagnoses Date /Time TSH Lab Routine Thyroid disease during in second trimester Prolactinoma (HCC) 02/13/2024 12:02 PM EDT T4, FREE Lab Routine Thyroid disease during in second trimester Prolactinoma (HCC) 02/13/2024 12:02 PM EDT CBC WITH WBC DIFFERENTIAL AND ANEMIA REFLEX WORKUP Lab Routine High-risk , second trimester 02/13/2024 12:02 PM EDT 50-G GESTATIONAL GLUCOSE, 1 HOUR Lab Routine High-risk , second trimester 02/13/2024 12:02 PM EDT SYPHILIS ANTIBODY SCREEN WITH REFLEX TO RPR Lab Routine High-risk , second trimester 02/13/2024 12:02 PM EDT ANEMIA CBC Lab Routine High-risk , second trimester 02/13/2024 12:02 PM EDT DIFFERENTIAL, AUTOMATED Lab Routine High-risk , second trimester 02/13/2024 12:02 PM EDT ANEMIA REFLEX CHEMISTRY HOLD Lab Routine High-risk , second trimester 02/13/2024 12:02 PM EDT SYPHILIS ANTIBODY SCREEN Lab Routine High-risk , second trimester 02/13/2024 12:02 PM EDT Health Maintenance Due Date Last Done [...] as of this encounter Visit Diagnoses Diagnosis Thyroid disease during in second trimester Prolactinoma (HCC) Benign neoplasm of pituitary gland and craniopharyngeal duct (pouch) High-risk , second trimester documented in this encounter Care Teams Tubing Machine Tender Relationship Specialty Start Date End Date Barbra Lord DO [address] [place] [address] PCP - General Family Medicine 01/06/23 documented as of this encounter
--- OUTSIDE RECORDS SUMMARY | 2024-05-02 12:55 | External Medical Summary ---
Author Name Unknown Address Unknown Organization [id number]:LABORATORY [facility] [place] - [facility] [place] [address] Laboratory Report Ordering Provider Test Date Status JODEE CAMARILLO 02/13/2024 12:02:59 Final Observation Date Value Abnormality Reference (Units ) Status Retic, % (auto) 02/13/2024 12:02:59 1.75 0.80-1.90 (%) Final Reticulocytes, Absolute 02/13/2024 12:02:59 71.2 31.3-100.1 (K/uL) Final Reticulocyte fraction, immature 02/13/2024 12:02:59 25.0 Above high normal 2.5-20.6 (%) Final Reticulocyte HGB 02/13/2024 12:02:59 29.1 Below low normal 29.7-37.4 (pg) Final Performing Location LABORATORY [facility] - [address] [place] [address]
--- OUTSIDE RECORDS SUMMARY | 2024-05-02 12:55 | External Medical Summary ---
Author Name Unknown Address Unknown Organization [id number]:LABORATORY [facility] [place] - [address] [place] [address] Laboratory Report Ordering Provider Test Date Status JODEE CAMARILLO 02/13/2024 12:02:59 Final Observation Date Value Abnormality Reference (Units ) Status Iron 02/13/2024 12:02:59 109 33-151 (ug/dL) Final Iron-binding capacity 02/13/2024 12:02:59 455 Above high normal 250-425 (ug/dL) Final Transferrin Sat % 02/13/2024 12:02:59 24 15-55 (%) Final Performing Location LABORATORY [facility] [place] - [address] [place] [address]
--- OUTSIDE RECORDS SUMMARY | 2024-05-02 12:55 | External Medical Summary | Summary of Care ---
Author Name Unknown Organization [facility] Address [address] [place] [facility] [place] [place] [address] Phone [phone] Care Team Providers Care Edge Setter Name Role Phone Barbra Lord DO Primary Care Provider [phone] [phone] Reason for Visit * Reason Comments Return Visit Encounter Details Date Type Department Care Team (Late st Contact Info) Description 02/28/2024 11:00 AM EDT Office Visit Gynecology/Obstetric s [facility] [address] [place] [address] Shashi Feng MD [address] [place] [phone] History of prior with SGA *; Normal in third trimester; Obesity in , antepartum; Hypothyroidism affecting in third trimester; Multigravida of advanced maternal age in third trimester; Previous delivery, antepartum condition or complication; complicated by tobacco use in third trimester Allergies No known active allergiesdocumented as [...] money to get more. Never true 11/28/2023 [place] Depression Scale Answer Date Recorded [place] Depression Scale Total 2 10/17/2023 The [...] No 11/28/2023 Does the household have a [facility] source of income? (Household - for ages [...] Sign Reading Time Taken Comments Blood Pressure 110/66 02/28/2024 11:00 AM EDT Pulse - - Temperature - - Respiratory Rate - - Oxygen Saturation - - Inhaled Oxygen Concentration - - Weight 108 kg (238 lb) 02/28/2024 11:00 AM EDT Height - - Body Mass Index 38.41 01/16/2024 1:11 PM EDT documented in this encounter Progress Notes * Shashi Feng MD - 02/28/2024 11:14 AM EDT Patient is a 2 para 1. Previous for distress. Delivered a 5 lb plus at 40 weeks. Also has a history of hypothyroidism. Thyroid has been well followed. The day of the visit she had a abdominal ultrasound. This ultrasound showed appropriate growth and fluid. Follow-up ultrasound will be performed in 1 month. * Hiral Verdugo LPN - 02/28/2024 10:59 AM EDT 29w6d Denies vaginal bleeding/rom + movement US today Declines tdap documented in this encounter Plan of Treatment Upcoming Encounters Date Type Department Care Team (Late st Contact Info) Description 03/07/2024 11:40 AM EDT Office Visit Podiatry [facility] [address] [facility] [place] [address] Rosalind Curtis DPM [address] [place] [address] 03/13/2024 10:00 AM EDT Office Visit Gynecology/Obstetrics [facility] [address] [facility] [place] [address] Barbra Lucas PA-C [address] [place] [address] 03/26/2024 9:45 AM EDT Imaging Radiology [facility] 2nd [facility] [place] [address] [facility] [place] [address] 03/26/2024 10:45 AM EDT Office Visit Gynecology/Obstetrics [facility] [address] [facility] [place] [address] Barbra Lucas PA-C [address] [place] [address] 06/12/2024 10:00 AM EDT Office Visit Neuroendocrine, [place] [address] [place] [address] Clinic, Neuroendocrine [facility] [address] [place], [place] [address] Scheduled Orders Name Type Priority Associated Diagnoses Orde r Schedule US PREG LIMITED 1 OR MORE FETUSES Medical Imaging Routine History of prior with SGA Expected: 03/29/2024 (Approximate), Expires: 03/29/2025 Health Maintenance Due Date Last Done Comments [...] as of this encounter Visit Diagnoses Diagnosis History of prior with SGA - Primary Normal in third trimester Obesity in , antepartum Obesity complicating , childbirth, or the puerperium, antepartum condition or complication Hypothyroidism affecting in third trimester Multigravida of advanced maternal age in third trimester Previous delivery, antepartum condition or complication complicated by tobacco use in third trimester documented in this encounter Care Teams Edge Setter Relationship Specialty Start Date End Date Barbra Lord DO [address] [address] PCP - General Family Medicine 01/06/23 documented as of this encounter
--- OUTSIDE RECORDS SUMMARY | 2024-05-02 12:55 | External Medical Summary ---
Author Name Unknown Address Unknown Organization K01:LABORATORY [facility] [place] - [address] [place] [address] Laboratory Report Ordering Provider Test Date Status RD FLYNN 02/13/2024 12:02:59 Final Observation Date Value Abnormality Reference (Units ) Status TSH 02/13/2024 12:02:59 0.62 0.27-4.20 (uIU/mL) Final Performing Location LABORATORY [facility] - [address] [place] [address]
--- OUTSIDE RECORDS SUMMARY | 2024-05-02 12:55 | External Medical Summary ---
Author Name Unknown Address Unknown Organization K01:LABORATORY [facility] - [address] [place] [address] Laboratory Report Ordering Provider Test Date Status JODEE CAMARILLO 02/13/2024 12:02:59 Final Observation Date Value Abnormality Reference (Units ) Status Ferritin 02/13/2024 12:02:59 14 13-150 (ng /mL) Final Performing Location LABORATORY [facility] - [address] [place] [address]
--- OUTSIDE RECORDS SUMMARY | 2024-05-02 12:55 | External Medical Summary | Summary of Care ---
Author Name Unknown Organization [facility] Address [address] [facility] [place] [address] Phone [phone] Care Team Providers Care Medical Device Sales Representative Name Role Phone Barbra Lord DO Primary Care Provider [phone] Reason for Visit * Reason Comments Return Visit Encounter Details Date Type Department Care Team (Late st Contact Info) Description 02/28/2024 11:00 AM EDT Office Visit Gynecology/Obstetric s [facility] [address] [place] [address] Shashi Feng MD [address] [place] [phone] History of prior with SGA *; Normal in third trimester; Obesity in , antepartum; Hypothyroidism affecting in third trimester; Multigravida of advanced maternal age in third trimester; Previous delivery, antepartum condition or complication; complicated by tobacco use in third trimester; Other specified related conditions, third trimester Allergies No known active allergiesdocumented as of this encounter (statuses as of 03/23/2024) Medications Medication Sig Dispensed Refills Start Date [...] as of this encounter (statuses as of 03/23/2024) Active Problems Problem Noted Date Diagnosed Date [...] as of this encounter (statuses as of 03/23/2024) Resolved Problems Problem Noted Date Diagnosed Date [...] as of this encounter (statuses as of 03/23/2024) Immunizations Name Administration Dates Next Due TDAP [...] Answer Date Recorded [place] Depression Scale Total 2 10/17/2023 The thought [...] No 11/28/2023 Does the household have a [facility] source [facility] income? (Household - for ages [...] for distress. Delivered a 5 lb plus infant at 40 weeks. Also has a history of hypothyroidism. Thyroid has been well followed. The day of the visit she had a abdominal ultrasound. This ultrasound showed appropriate growth and fluid. Follow-up ultrasound will be performed in 1 month. * Hiral Verdugo LPN - 02/28/2024 10:59 AM EDT 29w6d Denies vaginal bleeding/rom + movement US today Declines tdap documented in this encounter Miscellaneous Notes * Addendum Note - Dinora Charles LPN - 03/23/2024 8:27 AM EDTAddended by: DINORA CHARLES on: 03/23/2024 08:27 AM Modules accepted: Orders documented in this encounter Plan of Treatment Upcoming Encounters Date Type Department Care Team (Late st Contact Info) Description 03/26/2024 9:45 AM EDT Imaging Radiology [facility] 2nd [facility] [address] [facility] [place] [address] 03/26/2024 10:45 AM EDT Office Visit Gynecology/Obstetrics [facility] [address] [facility] [place] [address] Barbra Lucas PA-C [address] [place] [place] [address] 04/12/2024 12:30 PM EDT Office Visit Gynecology/Obstetrics [facility] [address] [facility] [place] [address] Sasha Choudhary MD [address] [facility] [place] [address] 06/12/2024 10:00 AM EDT Office Visit [facility], [place] [address] [place], [place] [id number] Clinic, [facility] [address] [place], [place] [phone] Scheduled Orders Name Type Priority Associated Diagnoses Orde r Schedule US PREG FOLLOW-UP EACH FETUS Medical Imaging Routine History of prior with SGA Other specified related conditions, third trimester Expected: 03/23/2024 (Approximate), Expires: 04/23/2025 Health Maintenance Due Date Last Done Comments [...] complicated by tobacco use in third trimester Other specified related conditions, third trimester documented in this encounter Care Teams Medical Device Sales Representative Relationship Specialty Start Date End Date Barbra Lord DO [address] [place] [address] PCP - General Family Medicine 01/06/23 documented as of this encounter
--- OUTSIDE RECORDS SUMMARY | 2024-05-02 12:55 | External Medical Summary ---
Author Name Unknown Address Unknown Organization K01:LABORATORY [facility] [place] - [facility] [place] [address] Laboratory Report Ordering Provider Test Date Status JODEE CAMARILLO 02/13/2024 12:02:59 Final Observation Date Value Abnormality Reference (Units ) Status WBC, Total 02/13/2024 12:02:59 12.16 Above high normal 4 .00-10.80 (K/uL) Final RBC 02/13/2024 12:02:59 4.13 3.85-5.15 (M/uL) Final Hemoglobin 02/13/2024 12:02:59 11.2 Below low normal 12 .0-15.3 (g/dL) Final Anemia reflex testing trigge rs on a HGB < 12.0 for Females and HGB < 13.0 for Males in accordance with the WHO Anemia Guidelines
Anemia reflex testing triggers on a HGB < 12.0 for Females and HGB < 13.0 for Males in accordance with the WHO Anemia Guidelines HCT 02/13/2024 12:02:59 35.8 Below low normal 36. 0-45.2 (%) Final MCV 02/13/2024 12:02:59 86.7 81.5-97.5 (fL) Final MCH 02/13/2024 12:02:59 27.1 27.0-34.0 (pg) Final MCHC 02/13/2024 12:02:59 31.3 32.0-36.0 (g/dL) Final RDW 02/13/2024 12:02:59 13.2 11.5-15.5 (%) Final Platelets 02/13/2024 12:02:59 336 140-400 (K /uL) Final MPV 02/13/2024 12:02:59 11.6 6.6-11.1 ( fL) Final Nucleated erythrocytes/100 leukocytes [Ratio] in Blood by Automated count 02/13/2024 12:02:59 0 <=0 (/100 WBCs) Final Performing Location LABORATORY [facility] [place] - [address] [facility] [address]
--- OUTSIDE RECORDS SUMMARY | 2024-05-02 12:55 | External Medical Summary | Summary of Care ---
Author Name Unknown Organization [facility] Address [address] [facility] [place] [address] Phone [phone] Care Team Providers Care Licensed Clinical Social Worker Name Role Phone Barbra Lord DO Primary Care Provider +1 [phone] Reason for Visit * Reason Comments Return Visit Encounter Details Date Type Department Care Team (Late st Contact Info) Description 03/13/2024 10:00 AM EDT Office Visit Gynecology/Obstetric s [facility] [address] [facility] [place] [address] Barbra Lucas PA-C [address] [facility] [place] [phone] Normal in third trimester*; Multigravida of advanced maternal age in third trimester; Obesity in , antepartum; Class 1 obesity; Hypothyroidism affecting in third trimester; Previous delivery, antepartum condition or complication; History of prior with SGA ; Tobacco use affecting , antepartum Allergies No known active allergiesdocumented as of this encounter (statuses as of 03/13/2024) Medications Medication Sig Dispensed Refills Start Date [...] as of this encounter (statuses as of 03/13/2024) Active Problems Problem Noted Date Diagnosed Date [...] as of this encounter (statuses as of 03/13/2024) Resolved Problems Problem Noted Date Diagnosed Date [...] as of this encounter (statuses as of 03/13/2024) Immunizations Name Administration Dates Next Due TDAP [...] money to get more. Never true 11/28/2023 [place] Depression Scale Answer Date Recorded [place] Depression Scale Total 2 10/17/2023 The thought [...] Sign Reading Time Taken Comments Blood Pressure 108/58 03/13/2024 10:04 AM EDT Pulse - - Temperature - - Respiratory Rate - - Oxygen Saturation - - Inhaled Oxygen Concentration - - Weight 108.4 kg (239 lb) 03/13/2024 10:04 AM EDT Height - - Body Mass Index 38.58 01/16/2024 1:11 PM EDT documented in this encounter Progress Notes * Sheree Yan MED ASSIST - 03/13/2024 10:04 AM EDT 31w6d Denies vaginal bleeding/rom + movements + nausea when brushing teeth * Barbra Lucas PA-C - 03/13/2024 10:00 AM EDT Barbara Casiano is a 33 year old female here for her routine OB appointment at 31w6d Her Estimated Date of Delivery: 05/09/24 REVIEW OF SYSTEMS She affirms movement. Denies vaginal bleeding, LOF, contractions, N/V, headaches, vision changes, chest pain, RUQ pain. PHYSICAL EXAM Filed Vitals: 03/13/24 1004 BP: 108/58 Weight: 108.4 kg (239 lb) +FHT 140s Fundal height 31 cm ASSESSMENT/PLAN Normal in third trimester (Primary) Multigravida of advanced maternal age in third trimester Obesity in , antepartum Class 1 obesity Hypothyroidism affecting in third trimester Previous delivery, antepartum condition or complication History of prior with SGA Tobacco use affecting , antepartum Supervision of - labor precautions and kick counts reviewed - discussed repeat CBC and U/S. U/S scheduled 03/26. She plans to complete CBC at that time. - she desires ERCS and BTL. To schedule next RAQUEL with MD to discuss and schedule. RTO in 2 weeks Barbra Lucas PA-C 03/13/2024 documented in this encounter Plan of Treatment Upcoming Encounters Date Type Department Care Team (Late st Contact Info) Description 03/26/2024 9:45 AM EDT Imaging Radiology [facility] 2nd Floor, [place] [address] [place] [address] 03/26/2024 10:45 AM EDT Office Visit Gynecology/Obstetrics [facility] [address] [place] [address] Barbra Lucas PA-C [address] [place] [address] [place] [address] 04/12/2024 12:30 PM EDT Office Visit Gynecology/Obstetrics [facility] 132 [facility] [place] [address] Sasha Choudhary MD [address] [facility] [place] [address] 06/12/2024 10:00 AM EDT Office Visit Neuroendocrine, [place] [address] [place] [address] Clinic, Neuroendocrine [facility] [address] [place] [address] Health Maintenance Due Date Last Done Comments [...] antepartum condition or complication Class 1 obesity Hypothyroidism affecting in third trimester Previous delivery, antepartum condition or complication History of prior with SGA Tobacco use affecting , antepartum documented in this encounter Care Teams Licensed Clinical Social Worker Relationship Specialty Start Date End Date Barbra Lord DO [address] [place] [address] PCP - General Family Medicine 01/06/23 documented as of this encounter
--- OUTSIDE RECORDS SUMMARY | 2024-05-02 12:55 | External Medical Summary ---
Author Name Unknown Address Unknown Organization K0G:LABORATORY [facility] - [address] [place] [address] Laboratory Report Ordering Provider Test Date Status JODEE CAMARILLO 02/13/2024 12:02:59 Final Observation Date Value Abnormality Reference (Units ) Status Glucose [Moles/volume] in Serum or Plasma --1 hour post 50 g glucose PO 02/13/2024 12:02:59 84 70-129 (mg/dL) Final Performing Location LABORATORY [facility] - [address] [place] [address]
--- OUTSIDE RECORDS SUMMARY | 2024-05-02 12:55 | External Medical Summary | Summary of Care ---
Author Name Unknown Organization [facility] Address [address] [place] [address] Phone [phone] Care Team Providers Care Security Strategist Name Role Phone Barbra Lord DO Primary Care Provider [phone] Reason for Visit * Reason Comments Follow Up R first toenail * Evaluate & Treat - Unlimited Visits (Within 10 days (routine)) - Authorized Specialty Diagnoses / Procedures Referred By Juanjo winkler Referred To Contact Podiatry Diagnoses Ingrown toenail Barbra Lord DO [address] [facility] [address] Referral ID Status Reason Start Date Expiration Date Visits Requested Visits Authorized [id number] Authorized Specialty Services Required 02/20/2024 [id number] Encounter Details Date Type Department Care Team (Late st Contact Info) Description 03/07/2024 11:40 AM EDT Office Visit Podiatry [facility] [address] [place] [address] Rosalind Curtis, AMADO [address] [facility] [place] [address] Ingrown toenail of right foot*; Pain in toe of right foot Allergies No known active allergiesdocumented as of this encounter (statuses as of 03/07/2024) Medications Medication Sig Dispensed Refills Start Date [...] as of this encounter (statuses as of 03/07/2024) Active Problems Problem Noted Date Diagnosed Date [...] as of this encounter (statuses as of 03/07/2024) Resolved Problems Problem Noted Date Diagnosed Date [...] as of this encounter (statuses as of 03/07/2024) Immunizations Name Administration Dates Next Due TDAP [...] money to get more. Never true 11/28/2023 [place] Depression Scale Answer Date Recorded [place] Depression Scale Total 2 10/17/2023 The thought [...] No 11/28/2023 Does the household have a [facility] source of income? (Household - for [...] as of this encounter Progress Notes * Rosalind Curtis DPM - 03/07/2024 11:45 AM EDT Podiatry Established Note [facility] Name: Barbara Casiano : 1990 Date: 03/07/2024 REASON FOR VISIT: return, ingrown toenail SUBJECTIVE: This patient is a 33 year old female who presents today for follow up of a recurrent ingrown toenail to the medial border of the right first toe. She reports improvement with past trimming but symptoms returned about 1-2 months ago. She has been using antibiotic ointment on the area. She is and due in about 2 months. She notices some mild swelling to the feet. 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 She offers no other concerns today. Past Medical History: Diagnosis Date Hyperprolactinemia ([facility]) 07/21/2023 Hypothyroidism Pituitary microadenoma ([facility]) 04/19/2011 Tobacco abuse 12/28/2021 ALLERGIES: Review of patient's allergies indicates: No Known Allergies REVIEW OF SYSTEMS: N/A FOCUSED PODIATRIC EXAM: Vascular: Pedal pulses palpable including dorsalis pedis and posterior tibial artery at 2/4 right. Capillary refill time is within normal limits to all toes. No significant pre-tibial edema noted. No warmth. Pedal hair growth noted. Neurologic: Sensation (light touch) intact to the right foot. Musculoskeletal: Pain is reported with palpation of the right first toe, medial skin fold. Dermatological: Slight incurvation of the medial nail border of the right first toe. No erythema. DIAGNOSTIC STUDIES: None ASSESSMENT: ICD-10-CM 1. Ingrown toenail of right foot L60.0 2. Pain in toe of right foot M79.674 PLAN: I discussed future treatment options if this reoccurs - partial nail avulsion with chemical matrixectomy. Today, I recommended nail trim which I performed without incident using sterile nail nippers.I applied antibiotic ointment and dry bandage. I recommended OTC antibiotic ointment such as neosporin x 3-4 days. She is to contact me if symptoms improve. Rosalind Curtis DPM documented in this encounter Nursing Notes * Viola Jeff LPN - 03/07/2024 11:26 AM EDT Pt presents for follow up, ingrown R great toenail x 1-2 months. Had ingrown nail, same nail and border 09/2023, trimmed out with relief. documented in this encounter Plan of Treatment Upcoming Encounters Date Type Department Care Team (Late st Contact Info) Description 03/13/2024 10:00 AM EDT Office Visit Gynecology/Obstetrics [facility] [address] [place] [address] Barbra Lucas PA-C [address] [place] [address] 03/26/2024 9:45 AM EDT Imaging [facility] [address] [place] [address] 03/26/2024 10:45 AM EDT Office Visit Gynecology/Obstetrics [facility] [address] [place] [address] Barbra Lucas PA-C [address] [place] [address] 06/12/2024 10:00 AM EDT Office Visit Neuroendocrine, [place] [address] [place] [address] Clinic, Neuroendocrine Multidisciplinary [address], [place] [phone] Scheduled Referrals Name Type Priority Associated Diagnoses Orde r Schedule PODIATRY REFERRAL OP Referral Within 10 days (routine) Ingrown toenail Ordered: 02/20/2024 Health Maintenance Due Date Last Done Comments [...] as of this encounter Visit Diagnoses Diagnosis Ingrown toenail of right foot- Primary Pain in toe of right foot Pain in limb documented in this encounter Care Teams Security Strategist Relationship Specialty Start Date End Date Barbra Lord DO [address] [place] [address] PCP - General Family Medicine 01/06/23 documented as of this encounter
--- OUTSIDE RECORDS SUMMARY | 2024-05-02 12:55 | External Medical Summary | Summary of Care ---
Author Name Unknown Organization [facility] Address [address] [facility] [place] [address] Phone [phone] Care Team Providers Care Thermal Cutting Tracer Machine Operator Name Role Phone Barbra Lord DO Primary Care Provider Reason for Visit * Reason Comments Return Visit Encounter Details Date Type Department Care Team (Late st Contact Info) Description 02/13/2024 11:30 AM EDT Office Visit Gynecology/Obstetric s Geoffrey Buck [address] [place] [address] Janel Cummings PA-C [address] [place] [address] Normal in second trimester*; Obesity in , [...] money to get more. Never true 11/28/2023 [place] Depression Scale Answer Date Recorded [place] Depression Scale Total 2 10/17/2023 The thought [...] Description 02/28/2024 10:00 AM EDT Imaging Radiology [facility] 132 [facility] [place] [address] 02/28/2024 11:00 AM EDT Office Visit Gynecology/Obstetrics [facility] 132 [facility] [place] [address] Shashi Feng MD 132 [facility] [place] [phone] 06/12/2024 10:00 AM EDT Office Visit Neuroendocrine, [place] [address] [place] [facility] [place] [address] Clinic, Neuroendocrine Multidisciplinary [address] [facility] [place] [phone] Scheduled Orders Name Type Priority Associated Diagnoses [...] trimester documented in this encounter Care Teams Thermal Cutting Tracer Machine Operator Relationship Specialty Start Date End Date Barbra Lord DO [address] [place] [address] PCP - General Family Medicine 01/06/23 documented as of this encounter
--- OUTSIDE RECORDS SUMMARY | 2024-05-02 12:55 | External Medical Summary ---
Author Name Unknown Address Unknown Organization [id number]:LABORATORY [facility] - [address] [place] [address] Laboratory Report Ordering Provider Test Date Status JODEE CAMARILLO 02/13/2024 12:02:59 Final Observation Date Value Abnormality Reference (Units ) Status Creatinine 02/13/2024 12:02:59 0.6 0.5-1.0 (mg/dL) Final Glomerular filtration rate/1.73 sq M.predicted [Volume Rate/Area] in Serum, Plasma or Blood by Creatinine-based formula (CKD-EPI) 02/13/2024 12:02:59 >90 >=60 (mL/min) Final eGFR is calculated based on the CKD-EPI 2020 equation Performing Location LABORATORY [facility] - [address] [place] [address]
--- OUTSIDE RECORDS SUMMARY | 2024-05-02 12:55 | External Medical Summary ---
Author Name Unknown Address Unknown Organization [id number]:LABORATORY [facility] [place] - [address] [place] [address] Laboratory Report Ordering Provider Test Date Status JODEE CAMARILLO 02/13/2024 12:02:59 Final Observation Date Value Abnormality Reference (Units ) Status Treponema pallidum Ab [Presence] in Serum by Immunoassay 02/13/2024 12:02:59 Nonreactive Nonreactive Final No serologic evidence of syp hilis. No additional testing clinicially indicated at this time. Consider repeat testing in 2-4 weeks if acute or primary syphilis is suspected. Performing Location LABORATORY [facility] [place] - [address] [place] [address]
--- OUTSIDE RECORDS SUMMARY | 2024-05-02 12:56 | External Medical Summary | Summary of Care ---
Author Name Unknown Organization [facility] Address [address] [facility] [address] Phone [phone] Care Team Providers Care Tank Inspector Name Role Phone Barbra Lord DO Primary Care Provider [phone] Reason for Visit * Reason Comments Outpatient Testing Encounter Details Date Type Department Care Team (Late st Contact Info) Description 12/07/2023 2:50 PM EDT Laboratory Laboratory, [facility] [place] [phone] [facility] [place] [address] Primary hypothyroidism; Hirsutism; Prolactinoma (HCC); Thyroid disease during in second trimester Allergies No known active allergiesdocumented as of this encounter (statuses as of 12/07/2023) Medications Medication Sig Dispensed Refills Start Date End Date Status Levothyroxine Sodium 75 MCG Oral Tablet (Levoxyl) Take 1 Tablet by mouth in the morning. (at least 30 min prior to breakfast or other meds). 90 Tablet 3 09/16/2023 Active 28-0.8 MG Oral Tablet Take by mouth. 0 Active documented as of this encounter (statuses as of 12/07/2023) Active Problems Problem Noted Date Diagnosed Date [...] as of this encounter (statuses as of 12/07/2023) Resolved Problems Problem Noted Date Diagnosed Date [...] as of this encounter (statuses as of 12/07/2023) Immunizations Name Administration Dates Next Due TDAP (age 10 and older)(Boostrix) 07/26/2022 documented as of this encounter Social History Tobacco Use Types Packs/Day Years Used Date Smoking Tobacco: Former Cigarettes Smokeless Tobacco: Never Alcohol Use Standard Drinks/Week Comments Not Currently 0 (1 standard drink = 0.6 oz pur e alcohol) PHQ-2 Answer Date Recorded PHQ Adult Total Score 0 06/01/2022 Hunger Vital Sign Answer Date Recorded Within the past 12 months, y ou worried that your food would run out before you got the money to buy more. Never true 11/28/19 24 Within the past 12 months, t he food you bought just didn't last and you didn't have money to get more. Never true 11/28/2023 [place] Depression Scale Answer Date Recorded [place] Depression Scale Total 2 10/17/2023 The thought [...] Care Team (Late st Contact Info) Description 12/12/2023 9:30 AM EDT Office Visit Gynecology/Obstetrics [facility] 132 [facility] [place] [address] Rosalind Garcia CNM [address] [place] [address] Pending Results Name Type Priority Associated Diagnoses Date /Time TSH WITH FREE T4 IF INDICATED Lab Routine Primary hypothyroidism 12/07/2023 3:06 PM EDT T4, FREE Lab Routine Thyroid disease during in second trimester Prolactinoma (HCC) 12/07/2023 3:06 PM EDT 25-HYDROXY VITAMIN D Lab Routine Thyroid disease during in second trimester Prolactinoma (HCC) 12/07/2023 3:06 PM EDT Health Maintenance Due Date Last Done Comments Hepatitis B (1 of 3 - 19+ 3-dose series) 2008 COVID-19 Vaccine (1 - 2022-24 season) 2023 Influenza Vaccine (FLU shot) (#1) 2023 Depression Screening 06/01/2023 06/01/2022 TSH 10/17/2024 10/17/2023, 04/2024, 07/21/2023, Additional history exists Pap Smear 09/28/2025 09/28/2022 [...] (pouch) Thyroid disease during in second trimester documented in this encounter Care Teams Tank Inspector Relationship Specialty Start Date End Date Barbra Lord DO [address] [place] [address] PCP - General Family Medicine 01/06/23 documented as of this encounter
--- OUTSIDE RECORDS SUMMARY | 2024-05-02 12:56 | External Medical Summary ---
Author Name Unknown Address Unknown Organization K01:LABORATORY [facility] - [address] [place] [address] Laboratory Report Ordering Provider Test Date Status RD FLYNN 12/07/2023 15:06:13 Final Observation Date Value Abnormality Reference (Units ) Status T4, Free 12/07/2023 15:06:13 1.1 0.9-1.7 (n g/dL) Final Performing Location LABORATORY [facility] - [address] [place] [address]
--- OUTSIDE RECORDS SUMMARY | 2024-05-02 12:56 | External Medical Summary ---
Author Name Unknown Address Unknown Organization K01:[facility] [place] [address] [facility] [facility] [address] Laboratory Report Ordering Provider Test Date Status RD FLYNN 12/07/2023 15:06:13 Final Observation Date Value Abnormality Reference (Units ) Status TSH 12/07/2023 15:06:13 1.04 0.27-4.20 (uIU/mL) Final Performing Location [facility] [address] [facility] [address]
--- OUTSIDE RECORDS SUMMARY | 2024-05-02 12:56 | External Medical Summary | Summary of Care ---
Author Name Unknown Organization [facility] Address [address] [place] [facility] [place] [address] Phone [phone] Care Team Providers Care Search Engine Optimization Analyst Name Role Phone Barbra Lord DO Primary Care Provider [phone] Reason for Visit * Reason Comments Outpatient Testing Encounter Details Date Type Department Care Team (Late st Contact Info) Description 12/12/2023 10:20 AM EDT Laboratory Laboratory, [facility] [place] [phone] [facility] [address] [employer] [address] Arrived Allergies No known active allergiesdocumented as of this encounter (statuses as of 12/12/2023) Medications Medication Sig Dispensed Refills Start Date End Date Status Levothyroxine Sodium 75 MCG Oral Tablet (Levoxyl) Take 1 Tablet by mouth in the morning. (at least 30 min prior to breakfast or other meds). 90 Tablet 3 09/16/2023 Active 28-0.8 MG Oral Tablet Take by mouth. 0 Active documented as of this encounter (statuses as of 12/12/2023) Active Problems Problem Noted Date Diagnosed Date [...] as of this encounter (statuses as of 12/12/2023) Resolved Problems Problem Noted Date Diagnosed Date [...] as of this encounter (statuses as of 12/12/2023) Immunizations Name Administration Dates Next Due TDAP [...] money to get more. Never true 11/28/2023 [place] Depression Scale Answer Date Recorded [place] Depression Scale Total 2 10/17/2023 The thought [...] Care Team (Late st Contact Info) Description 12/27/2023 2:15 PM EDT Imaging Radiology [facility] 2nd [facility], [address] [place] [address] Health Maintenance Due Date Last Done Comments Hepatitis B (1 of 3 - 19+ 3-dose series) 2008 COVID-19 Vaccine (2022- season) 2023 Influenza Vaccine (FLU shot) (Season [...] filedocumented as of this encounter Care Teams Search Engine Optimization Analyst Relationship Specialty Start Date End Date Barbra Lord DO [address] [place] [address] PCP - General Family Medicine 01/06/23 documented as of this encounter
--- OUTSIDE RECORDS SUMMARY | 2024-05-02 12:56 | External Medical Summary | Summary of Care ---
Author Name Unknown Organization [facility] Address [address] [place] [address] Phone [phone] Care Team Providers Care Stock Sheets Cleaner Inspector Name Role Phone Barbra Lord DO Primary Care Provider Reason for Visit * Reason Comments Return Visit Encounter Details Date Type Department Care Team (Late st Contact Info) Description 12/12/2023 9:30 AM EDT Office Visit Gynecology/Obstetric s [facility] 132 [facility] [place] [address] Rosalind Garcia CNM 400 [facility] [place] [phone] Normal in second trimester*; Obesity in , antepartum; Hypothyroidism affecting in second trimester; Previous delivery, antepartum condition [...] money to get more. Never true 11/28/2023 [place] Depression Scale Answer Date Recorded [place] Depression Scale Total 2 10/17/2023 The thought [...] Reading Time Taken Comments Blood Pressure 106/62 12/12/2023 9:37 AM EDT Pulse - - Temperature - - Respiratory Rate - - Oxygen Saturation - - Inhaled Oxygen Concentration - - Weight 102.2 kg (225 lb 3.2 oz) 12/12/2023 9:37 AM EDT Height 167.6 cm (5' 6") 12/12/2023 9:37 AM EDT Body Mass Index 36.35 12/12/2023 9:37 AM EDT documented in this encounter Progress Notes * Rosalind Garcia CNM - 12/12/2023 9:25 AM EDT Barbara Casiano is a 33 year old female here for her routine OB appointment at 18w5d Her Estimated Date of Delivery: 05/09/24 REVIEW OF SYSTEMS: She affirms movement. Denies vaginal bleeding, LOF, contractions, N/V, headaches PHYSICAL EXAM: Filed Vitals: 12/12/23 0937 BP: 106/62 Weight: 102.2 kg (225 lb 3.2 oz) Height: 1.676 m (5' 6") +FHT 140s ASSESSMENT/PLAN: 1. Obesity in , antepartum 2. Hypothyroidism affecting Seeing endocrinology, TSH 1.04 on 12/07/23 3. Previous delivery, antepartum condition or complication Planning repeat 4. History of prior with SGA 5. Tobacco use complicating 6. Normal in second trimester - US PREG SINGLE/1ST GEST, 14 WEEKS OR LATER; Future - MATERNAL SERUM AFP - anatomy u/s due in 2 weeks pt to schedule - discussed MSAFP and role in detecting open neural tube defects. Patient desires - RTO in 4 weeks Rosalind Garcia CNM documented in this encounter Nursing Notes * Frida Palma RN - 12/12/2023 9:38 AM EDT Patient here for RAQUEL visit 18w5d No concerns Frida Palma RN documented in this encounter Plan of Treatment Upcoming Encounters Date Type Department Care Team (Late st Contact Info) Description 12/12/2023 10:20 AM EDT Laboratory Laboratory, [address] [place] [phone] Elpidio Buck [address] [place] [address] Arrived 12/27/2023 2:15 PM EDT Imaging Radiology [facility] 2nd [facility], [address] [place] [address] Pending Results Name Type Priority Associated Diagnoses Date /Time MATERNAL SERUM AFP Lab Routine Normal in second trimester 12/12/2023 9:58 AM EDT Scheduled Orders Name Type Priority Associated Diagnoses Orde r Schedule US PREG SINGLE/1ST GEST, 14 WEEKS OR LATER Medical Imaging Routine Normal in second trimester Expected: 12/12/2023, Expires: 01/10/2025 Health Maintenance Due Date Last Done Comments Hepatitis B (1 of 3 - 19+ 3-dose series) 2008 COVID-19 Vaccine ( - season) 2023 Influenza Vaccine (FLU shot) (Season Ended) 2024 TSH 12/06/2024 12/07/2023, 0201/2024, 09/19/2023, Additional history exists Depression Screening 12/11/2024 [...] or complication Hypothyroidism affecting in second trimester Previous delivery, antepartum condition or complication History of prior with SGA complicated by tobacco use in second trimester documented in this encounter Care Teams Stock Sheets Cleaner Inspector Relationship Specialty Start Date End Date Barbra Lord DO [address] [place] [address] PCP - General Family Medicine 01/06/23 documented as of this encounter
--- OUTSIDE RECORDS SUMMARY | 2024-05-02 12:56 | External Medical Summary | Summary of Care ---
Author Name Unknown Organization [facility] Address [address] [place] [address] Phone [phone] Care Team Providers Care Field Sales Manager Name Role Phone Barbra Lord DO Primary Care Provider [phone] Reason for Visit * Reason Comments Return Visit Encounter Details Date Type Department Care Team (Late st Contact Info) Description 01/16/2024 9:30 AM EDT Office Visit Gynecology/Obstetric s [facility] 132 [facility] [place] [address] Trang Zayas CNM 400 [facility] [place], [place] [phone] High-risk , second trimester*; Hypothyroidism affecting in second trimester; Previous delivery, antepartum condition or complication; History of prior with SGA ; Class 1 obesity Allergies No known active allergiesdocumented as of this encounter (statuses as of 01/16/2024) Medications Medication Sig Dispensed Refills Start Date End Date Status Levothyroxine Sodium 75 MCG Oral Tablet (Levoxyl) Take 1 Tablet by mouth in the morning. (at least 30 min prior to breakfast or other meds). 90 Tablet 3 09/16/2023 Active 28-0.8 MG Oral Tablet Take by mouth. 0 Active Magnesium 200 MG Oral Tablet Chewable Take by mouth. 0 Active documented as of this encounter (statuses as of 01/16/2024) Active Problems Problem Noted Date Diagnosed Date [...] as of this encounter (statuses as of 01/16/2024) Resolved Problems Problem Noted Date Diagnosed Date [...] as of this encounter (statuses as of 01/16/2024) Immunizations Name Administration Dates Next Due TDAP [...] money to get more. Never true 11/28/2023 [place] Depression Scale Answer Date Recorded [place] Depression Scale Total 2 10/17/2023 The thought [...] Sign Reading Time Taken Comments Blood Pressure 110/68 01/16/2024 1:11 PM EDT Pulse - - Temperature - - Respiratory Rate - - Oxygen Saturation - - Inhaled Oxygen Concentration - - Weight 102.5 kg (226 lb) 01/16/2024 1:11 PM EDT Height 167.6 cm (5' 6") 01/16/2024 1:11 PM EDT Body Mass Index 36.48 01/16/2024 1:11 PM EDT documented in this encounter Progress Notes * Trang Zayas CNM - 01/16/2024 10:08 AM EDT Barbara Casiano is a 33 year old female here for her routine OB appointment at 23w5d Her Estimated Date of Delivery: 05/09/24 REVIEW OF SYSTEMS: She affirms movement. Denies vaginal bleeding, LOF, contractions, N/V, headaches, vision changes, and RUQ pain. Headaches have improved with 200mg magnesium daily. Denies mental health concerns. Stopped smoking 1 year ago. Denies marijuana. PHYSICAL EXAM: Filed Vitals: 01/16/24 1311 BP: 110/68 Weight: 102.5 kg (226 lb) Height: 1.676 m (5' 6") +FHT 150-160bpm Fundal height: 25cm ASSESSMENT/PLAN: (O99.282, E03.9) Hypothyroidism affecting in second trimester Plan: -Repeat TSH with third trimester labs -Managed by PCP -75mcg levothyroxine daily -TSH 1.04 on 12/07/23 (O09.522) Multigravida of advanced maternal age in second trimester (O34.219) Previous delivery, antepartum condition or complication Plan: -Desires ERCS (Z87.59) History of prior with SGA Plan: -Consider third trimester growth US; first baby 5lb 7.5 oz at 40w5d (E66.9) Class 1 obesity (O09.92) High-risk , second trimester (primary encounter diagnosis) Plan: CBC WITH WBC DIFFERENTIAL AND ANEMIA REFLEX WORKUP, 50-G GESTATIONAL GLUCOSE, 1 HOUR, SYPHILIS ANTIBODY SCREEN WITH REFLEX TO RPR - reviewed and ordered GTT, CBC, and syphilis screen for patient to complete between now and her next visit - reviewed recommendation for tdap vaccine at next visit - RTO in 4 weeks Trang Zayas CNM documented in this encounter Plan of Treatment Upcoming Encounters Date Type Department Care Team (Late st Contact Info) Description 02/13/2024 11:30 AM EDT Office Visit Gynecology/Obstetrics Geoffrey Buck [address] [place] [address] Janel Cummings PA-C [address] [place] [address] 06/12/2024 10:00 AM EDT Office Visit Neuroendocrine, [place] [address] [place] [address] Clinic, Neuroendocrine [facility] [address] [place] [address] Scheduled Orders Name Type Priority Associated Diagnoses Orde r Schedule CBC WITH WBC DIFFERENTIAL AND ANEMIA REFLEX WORKUP Lab Routine High-risk , second trimester Expected: 01/16/2024 (Approximate), Expires: 01/15/2025 50-G GESTATIONAL GLUCOSE, 1 HOUR Lab Routine High-risk , second trimester Expected: 01/16/2024, Expires: 01/15/2025 SYPHILIS ANTIBODY SCREEN WITH REFLEX TO RPR Lab Routine High-risk , second trimester Expected: 01/16/2024, Expires: 01/15/2025 Health Maintenance Due Date Last Done Comments [...] this encounter Visit Diagnoses Diagnosis High-risk , second trimester- Primary Hypothyroidism affecting in second trimester Previous delivery, antepartum condition or complication History of prior with SGA Class 1 obesity documented in this encounter Care Teams Field Sales Manager Relationship Specialty Start Date End Date Barbra Lord DO [address] [place] [address] PCP - General Family Medicine 01/06/23 documented as of this encounter
--- OUTSIDE RECORDS SUMMARY | 2024-05-02 12:56 | External Medical Summary | Summary of Care ---
Author Name Unknown Organization [facility] Address [address] [facility] [place] [address] Phone [phone] Care Team Providers Care Cooker Cleaner Name Role Phone Barbra Lord DO Primary Care Provider +1 [phone] Encounter Details Date Type Department Care Team (Late st Contact Info) Description 01/24/2024 Orders Only PATIENT PORTAL DO NOT DELETE THIS DEPT USED BY [place] [id number] Allergies No known active allergiesdocumented as of this encounter (statuses as of 01/24/2024) Medications Medication Sig Dispensed Refills Start Date [...] as of this encounter (statuses as of 01/24/2024) Active Problems Problem Noted Date Diagnosed Date [...] as of this encounter (statuses as of 01/24/2024) Resolved Problems Problem Noted Date Diagnosed Date [...] as of this encounter (statuses as of 01/24/2024) Immunizations Name Administration Dates Next Due TDAP [...] money to get more. Never true 11/28/2023 [place] Depression Scale Answer Date Recorded [place] Depression Scale Total 2 10/17/2023 The thought [...] 11:30 AM EDT Office Visit Gynecology/Obstetrics [facility] [address] [place] [address] Janel Cummings PA-C [address] [place] [address] 06/12/2024 10:00 AM EDT Office Visit Neuroendocrine, [place] [address] [facility] [place] [address] Clinic[facility] [address] Health Maintenance Due Date Last Done Comments Hepatitis B (1 of 3 - 19+ 3-dose series) 2008 COVID-19 Vaccine (2022-24 season) 2023 Influenza Vaccine (FLU shot) (Season [...] filedocumented as of this encounter Care Teams Cooker Cleaner Relationship Specialty Start Date End Date Barbra Lord DO [address] [place] [address] PCP - General Family Medicine 01/06/23 documented as of this encounter
--- OUTSIDE RECORDS SUMMARY | 2024-05-02 12:56 | External Medical Summary ---
Author Name Unknown Address Unknown Organization : Laboratory Report Ordering Provider Test Date Status JANET MALDONADO 12/12/2023 09:58:55 Final Observation Date Value Abnormality Reference (Units ) Status INTERPRETATION 12/12/2023 09:58:55 SEE BELOW Final Screen negative for open NTD . RISK FOR ONTD 12/12/2023 09:58:55 <1:5000 Final CALC'D GESTATIONAL AGE 0412/12/2023 09:58:55 18.7 Final AFP, SERUM 12/12/2023 09:58:55 38.7 (ng/mL) Final AFP MOM 12/12/2023 09:58:55 1.02 Final Reference Range:
NTD < 2.50
IDD <1.90
TWINS <4.00
TWINS IDD <3.50
TRIPLETS <4.50
The AFP test result indicates that this patient is
screen negative for open NTD. It should be noted
that normal test results can never guarantee the
of a normal baby and that 2-3% of newborns
have some type of physical or mental defect, many
of which are undetectable through any known
diagnostic technique.
This is a screening test, not a diagnostic test.
This risk assessment report is based in part on
demographic data provided by the ordering
physician. Please notify the laboratory promptly
if any data are incorrect. For assistance with
recalculations, please call your local [facility] laboratory. For assistance with
interpretation of these results, please contact
your Local [facility] genetic counselor or
call [phone] ([phone]).
Interpretive Cutoffs
Screen Positive for Open NTD:
> or = 2.50 adjusted MOM
> or = 1.90 adjusted MOM for insulin- dependent diabetics
> or = 4.00 adjusted MOM for twins
> or = 3.50 adjusted MOM for twins insulin-dependent diabetics
> or = 4.50 adjusted MOM for triplets
For additional information, please refer to
http://Booster.HelloBooks/faq/GLW82e3
(This link is being provided for
informational/educational purposes only.) DATE OF 12/12/2023 09:58:55 1990 Final COLLECTION DATE 12/12/2023 09:58:55 12/12/2023 Final MATERNAL WEIGHT 12/12/2023 09:58:55 224 (lbs ) Final EST'D DATE OF DELIVERY 12/12/2023 09:58:55 05/09/2024 Final ARMAND DETERMINED BY 12/12/2023 09:58:55 LMP Final MOTHER'S ETHNIC ORIGIN 12/12/2023 09:58:55 WHITE Final NUMBER OF FETUSES 12/12/2023 09:58:55 1 Final INSULIN DEPEND DIABETIC 12/12/2023 09:58:55 N Final REPEAT SPECIMEN 12/12/2023 09:58:55 N Final HX OF NEURAL TUBE DEFECTS 12/12/2023 09:58:55 N Final PREV DOWN SYND 12/12/2023 09:58:55 N Final DONOR EGG 12/12/2023 09:58:55 N Final DONOR AGE: EGG RETRIEVAL 12/12/2023 09:58:55 NOT GIVEN Final Test performed by [facility]
[address],
[place] [address]

Machine Baster: Mariely Mendoza MD,PHD,HONORIO
Test Reported by Navjot Dupont,
[facility],
[address] [place], [place]
Tyson Hart M.D., Ph.D., Director of Laboratories
, SAT[place]ER [id number] Performing Location
--- OUTSIDE RECORDS SUMMARY | 2024-05-02 12:56 | External Medical Summary | Summary of Care ---
Author Name Unknown Organization [facility] Address [address] [place] [address] Phone [phone] Care Team Providers Care Bumper Straightener Name Role Phone Barbra Lord DO Primary Care Provider [phone] Reason for Visit * Reason Onset Date Comments Appointment 12/06/2023 Encounter Details Date Type Department Care Team (Late st Contact Info) Description 12/06/2023 Telephone [facility], [place] [address] [place], [place] [id number] Specified, Z No Resource [address] [place], [place] [id number] Appointment Allergies No known active allergiesdocumented as of this encounter (statuses as of 12/06/2023) Medications Medication Sig Dispensed Refills Start Date End Date Status Levothyroxine Sodium 75 MCG Oral Tablet (Levoxyl) Take 1 Tablet by mouth in the morning. (at least 30 min prior to breakfast or other meds). 90 Tablet 3 09/16/2023 Active 28-0.8 MG Oral Tablet Take by mouth. 0 Active documented as of this encounter (statuses as of 12/06/2023) Active Problems Problem Noted Date Diagnosed Date [...] as of this encounter (statuses as of 12/06/2023) Resolved Problems Problem Noted Date Diagnosed Date [...] as of this encounter (statuses as of 12/06/2023) Immunizations Name Administration Dates Next Due TDAP [...] money to get more. Never true 11/28/2023 [place] Depression Scale Answer Date Recorded [place] Depression Scale Total 2 10/17/2023 The thought [...] encounter Miscellaneous Notes * Telephone Encounter - Cristina Hughes OSA - 12/06/2023 9:47 AM EDT Lmom to schedule an appt with Neuroendocrine in [place] for either June or July, please schedule accordingly documented in this encounter Plan of Treatment Upcoming Encounters Date Type Department Care Team (Late st Contact Info) Description 12/12/2023 9:30 AM EDT Office Visit Gynecology/Obstetrics [facility] [address] [facility] [place] [address] Rosalind Garcia CNM [address] [place] [address] Health Maintenance Due Date Last Done Comments [...] filedocumented as of this encounter Care Teams Bumper Straightener Relationship Specialty Start Date End Date Barbra Lord DO [address] [place] [address] PCP - General Family Medicine 01/06/23 documented as of this encounter
--- OUTSIDE RECORDS SUMMARY | 2024-05-02 12:56 | External Medical Summary ---
Author Name Unknown Address Unknown Organization K01:LABORATORY [facility] - [address] [place] [address] Laboratory Report Ordering Provider Test Date Status RD FLYNN 12/07/2023 15:06:13 Final Deficient: <20 ng/mL
Ins ufficient: 20-29 ng/mL
Recommended/Optimum:30-50 ng/mL

Vitamin D intoxication is rare. If suspicious of Vitamin D toxicity, evaluation of serum Calcium and PTH is recommended. Observation Date Value Abnormality Reference (Units ) Status 25-OH Vitamin D total 12/07/2023 15:06:13 33 >19 (ng/mL) Final Performing Location [facility] - [address] [place] [address]
--- OUTSIDE RECORDS SUMMARY | 2024-05-02 12:56 | External Medical Summary | Summary of Care ---
Author Name Unknown Organization [facility] Address [address] [facility] [place] [address] Phone [phone] Care Team Providers Care Croze Cutter Name Role Phone Barbra Lord DO Primary Care Provider [phone] Encounter Details Date Type Department Care Team (Late st Contact Info) Description 12/06/2023 Orders Only PATIENT PORTAL DO NOT DELETE THIS DEPT USED BY [place] [address] Allergies No known active allergiesdocumented as of [...] money to get more. Never true 11/28/2023 [place] Depression Scale Answer Date Recorded [place] Depression Scale Total 2 10/17/2023 The thought [...] 12/12/2023 9:30 AM EDT Office Visit Gynecology/Obstetrics [facility] [address] [facility] [place] [address] Rosalind Garcia, [address] [place] [address] Health Maintenance Due Date [...] filedocumented as of this encounter Care Teams Croze Cutter Relationship Specialty Start Date End Date Barbra Lord DO [address] [place] [address] PCP - General Family Medicine 01/06/23 documented as of this encounter
--- OUTSIDE RECORDS SUMMARY | 2024-05-02 12:57 | External Medical Summary | Summary of Care ---
Author Name Unknown Organization [facility] Address [address] [facility] [place] [address] Phone [phone] Care Team Providers Care Chief Deputy Sheriff Name Role Phone Barbra Goldman DO Primary Care Provider Encounter Details Date Type Department Care Team (Late st Contact Info) Description 12/01/2023 8:20 AM EDT Telemedicine Endocrinology, [place] [address] [facility] [address] [place] [address] Dominik Lo, DO [address] [place] [address] [place] [address] Thyroid disease during in second trimester*; Prolactinoma (HCC) Allergies No known active allergiesdocumented as of this encounter (statuses as of 12/01/2023) Medications Medication Sig Dispensed Refills Start Date End Date Status Levothyroxine Sodium 75 MCG Oral Tablet (Levoxyl) Take 1 Tablet by mouth in the morning. (at least 30 min prior to breakfast or other meds). 90 Tablet 3 09/16/2023 Active 28-0.8 MG Oral Tablet Take by mouth. 0 Active documented as of this encounter (statuses as of 12/01/2023) Active Problems Problem Noted Date Diagnosed Date [...] as of this encounter (statuses as of 12/01/2023) Resolved Problems Problem Noted Date Diagnosed Date [...] as of this encounter (statuses as of 12/01/2023) Immunizations Name Administration Dates Next Due TDAP [...] money to get more. Never true 11/28/2023 [place] Depression Scale Answer Date Recorded [place] Depression Scale Total 2 10/17/2023 The thought [...] as of this encounter Progress Notes * Dominik Lo DO - 12/01/2023 8:41 AM EDT Images from the original note were not included. Patient location: HOME. I was in a hospital or clinic location. After connecting through televideo,patient was verified with two unique identifiers. Patient (or authorized legal loss prevention representative) was then informed that this was a Telemedicine visit and being conducted confidentially over secure lines. Methods to assure confidentiality were taken. Patient acknowledged consent and understanding of pr ivacy and security of the Telemedicine visit. The patient agreed to participate. Ms. Casiano is a pleasant 33year old patient of Barbra Goldman DO seen in follow up of hyperprolactinemai. History of Present Illness Ms. Casiano has a history of a pituitary mass since age 14 yrs, when she presented with galactorrhea. She was on both bromocriptine and cabergoline. She had some intolerance on bromocriptine and cabergoline seemed to be more effective. Last MRI remote, > 10 yrs ago. She stopped medical therapy on her own and was lost to follow up in this regard. She had no breast s/s and regular menses, and conceived without difficulty in 2021. She delivered in 09/02, and stopped in 11/04. Her milk persisted as b/l and typically only expressiblewith some breast tenderness. Her menses had not returned. Labs showed a minor Prolactin @ 50 and primary hypothyroidism. MRI sella showed We put her cabergoline 0.25 mg biweekly. She ended up conceiving prior to her menses returning. Shethen stopped cabergoline. EDC 05/09/24. She plans on . With her breast s/s stopped. Otherwise, no issues with . She does not have GDM, did not with last child either. She is on LT4 75 mcg - increased with . Takes it fasting daily separate from her . SELLA/PITUITARY MR WITHOUT/WITH CONTRAST. 04/14/2023 COMPARISON: No comparisons. 4 x 6 x 4 mm (AP, transverse, craniocaudal) right anterior pituitary focal decreased enhancement relative to remainder of pituitary gland, which may represent pituitary microadenoma (series 11, image8; series 12, image 7). Normal posterior pituitary precontrast T1 hyperintense signal. Pituitary infundibulum deviation to right. Bilateral optic nerve cisternal segments, optic chiasm, and bilateral optic tract cisternal segments are normal. Normal bilateral cavernous sinus enhancement is present. Lab Results Component Value Date/Time PROLACTIN - [facility] 42.3 (H) 09/19/2023 04:00 PM PROLACTIN - [facility] 71.1 (H) 03/24/2023 07:11 AM PROLACTIN - [facility] 50.1 (H) 03/10/2023 02:50 PM PROLACTIN, DILUTED No hook effect 03/24/2023 07:11 AM PROLACTIN, MONOMERIC 30.4 (H) 03/24/2023 07:11 AM PROLACTIN, TOTAL 42.2 (H) 03/24/2023 07:11 AM PROLACTIN, UNDILUTED 44.9 03/24/2023 07:11 AM Latest Reference Range & Units 07/21/23 10:58 09/19/23 16:00 10/17/23 11:53 TSH 0.27 - 4.20 uIU/mL 0.81 2.69 1.76 Latest Reference Range & Units 05/18/22 12:00 11/22/22 11:21 03/10/23 14:50 TSH 0.27 - 4.20 uIU/mL 0.76 0.93 4.70 (H) T4, Free 0.9 - 1.7 ng/dL 0.5 (L) Component Latest Ref Rng 03/28/2023 TOTAL VOLUME mL 800 Cortisol, Free, 24 HR Urine 4.0 - 50.0 mcg/24 h 9.7 Creatinine, 24-Hour Urine 0.50 - 2.15 g/24 h 1.32 Component Latest Ref Rng 03/24/2023 Testosterone, Total, MS 2 - 45 ng/dL 39 TESTOSTERONE,FREE 0.1 - 6.4 pg/mL 3.5 Adrenocorticotropic Hormone 7.2 - 63.3 pg/mL 20.9 Cortisol 2.5 - 19.5 ug/dL 10.1 DHEA-Sulfate 23 - 266 mcg/dL 209 No results found for: "IGF" Past Medical History: Prolactinoma Review of patient's allergies indicates: No Known Allergies Current Outpatient Medications Medication Sig Dispense Refill Levothyroxine Sodium 75 MCG Oral Tablet (Levoxyl) Take 1 Tablet by mouth in the morning. (at least 30 min prior to breakfast or other meds). 90 Tablet 3 28-0.8 MG Oral Tablet Take by mouth. No current facility-administered medications for this visit. Physical Exam There were no vitals filed for this visit. - telemed BP Readings from Last 3 Encounters: 11/15/23 102/60 10/17/23 104/62 09/29/23 102/60 Wt Readings from Last 3 Encounters: 11/15/23 100.7 kg (222 lb) 10/17/23 98.4 kg (217 lb) 09/29/23 93.9 kg (207 lb) BMI Readings from Last 3 Encounters: 11/15/23 35.83 kg/m 10/17/23 35.02 kg/m 09/29/23 33.41 kg/m General: Awake, alert, and oriented times three. Pleasant and cooperative in no acute distress. Eyes: Extra-ocular muscles intact. Anicteric no chemosis or proptosis Neuro: nonfocal Psych: normal mood affect and judgement Assessment and Plan ICD-10-CM 1. Thyroid disease during in second trimester O99.282 E07.9 2. Prolactinoma (HCC) D35.2 Ms. Casiano has a prolactinoma which was medically managed with cabergoline. In the past, this was able to induce a remission. Her first gestation appeared to have flared her lesion, which again appears productive. It is about 5 mm in diameter and in the R gland. She did have cabergoline restore her menses, and she is now again. She is off therapy and will breastfeed. No s/s. Once she weans her child , follow labs and sellar MRI with Neuroendocrine in fall 2023. She has hypothyroidism. Her Lt4 was increased. Follow labs. Start 2000 iu D3 as she plans on . Labs: Tsh T4, free 25-hydroxy vitamin d Wrap-Up Follow up 6 months [facility] [place], sooner if needed Thank you for allowing me to participate in the care of your patient. documented in this encounter Plan of Treatment Upcoming Encounters Date Type Department Care Team (Late st Contact Info) Description 12/12/2023 9:30 AM EDT Office Visit Gynecology/Obstetrics [facility] [address] [facility] [place] [address] Rosalind Garcia CNM [address] [facility] [place] [address] Scheduled Orders Name Type Priority Associated Diagnoses Orde r Schedule TSH Lab Routine Thyroid disease during in second trimester Prolactinoma (HCC) Every Month for 9 Occurrences starting 12/01/2023 until 08/31/2024 T4, FREE Lab Routine Thyroid disease during in second trimester Prolactinoma (HCC) Every Month for 9 Occurrences starting 12/01/2023 until 08/31/2024 25-HYDROXY VITAMIN D Lab Routine Thyroid disease during in second trimester Prolactinoma (HCC) Expected: 12/01/2023, Expires: 03/02/2024 Health Maintenance Due Date Last Done Comments [...] Diagnoses Diagnosis Thyroid disease during in second trimester- Primary Prolactinoma (HCC) Benign neoplasm of pituitary gland and craniopharyngeal duct (pouch) documented in this encounter Care Teams Chief Deputy Sheriff Relationship Specialty Start Date End Date Barbra Goldman DO [address] [place] [address] PCP - General Family Medicine 01/06/23 documented as of this encounter
--- OUTSIDE RECORDS SUMMARY | 2024-05-02 12:57 | External Medical Summary | Summary of Care ---
Author Name Unknown Organization [facility] Address [address] [facility] [place] [place] [address] Phone [phone] Care Team Providers Care Plane Tender Name Role Phone Barbra Lord DO Primary Care Provider [phone] Encounter Details Date Type Department Care Team (Late st Contact Info) Description 11/18/2023 Telephone Gynecology/Obstetrics [facility] [address] [place] [address] Barbie Feliz CRNP [address] [place] [address] Allergies No known active allergiesdocumented as of this encounter (statuses as of 11/18/2023) Medications Medication Sig Dispensed Refills Start Date End Date Status Levothyroxine Sodium 75 MCG Oral Tablet (Levoxyl) Take 1 Tablet by mouth in the morning. (at least 30 min prior to breakfast or other meds). 90 Tablet 3 09/16/2023 Active 28-0.8 MG Oral Tablet Take by mouth. 0 Active documented as of this encounter (statuses as of 11/18/2023) Active Problems Problem Noted Date Diagnosed Date Normal 10/17/2023 Obesity in , antepartum 10/17/2023 Overview: Class 1, early GTT normal Hypothyroidism affecting 10/17/2023 Overview: TSH Results: Lab Results Component Value Date/Time TSH - [facility] 2.69 09/19/2023 04:00 PM TSH - [facility] [...] as of this encounter (statuses as of 11/18/2023) Resolved Problems Problem Noted Date Diagnosed Date [...] as of this encounter (statuses as of 11/18/2023) Immunizations Name Administration Dates Next Due TDAP [...] the money to buy more. Never true 02/26/20 23 Within the past 12 months, t he food you bought just didn't last and you didn't have money to get more. Never true 02/25/2023 [place] Depression Scale Answer Date Recorded [place] Depression Scale Total 2 10/17/2023 The [...] Telephone Encounter - Dinora Charles LPN - 11/18/2023 11:19 AM EST FMLA forms completed, faxed, copy placed in scanning and original in triage bin documented in this encounter Plan of Treatment Upcoming Encounters Date Type Department Care Team (Late st Contact Info) Description 12/01/2023 8:20 AM EDT Telemedicine Endocrinology, [place] [address] [facility] [address] [place] [address] Dominik Lo, DO [address] [place] [address] [place] [address] 12/12/2023 9:30 AM EDT Office Visit Gynecology/Obstetrics [facility] [address] [place] [address] Rosalind Garcia, LI[place] [address] [place] [address] Health Maintenance Due Date Last Done Comments [...] filedocumented as of this encounter Care Teams Plane Tender Relationship Specialty Start Date End Date Barbra Lord DO [address] [facility] [place] [address] PCP - General Family Medicine 01/06/23 documented as of this encounter
--- OUTSIDE RECORDS SUMMARY | 2024-05-02 12:57 | External Medical Summary | Summary of Care ---
Author Name Unknown Organization [facility] Address [address] [facility] [place] [address] Phone [phone] Care Team Providers Care Ug Designer Name Role Phone Barbra Lord DO Primary Care Provider [phone] Reason for Visit * Reason Comments Return Visit Encounter Details Date Type Department Care Team (Late st Contact Info) Description 11/15/2023 9:15 AM EST Office Visit Gynecology/Obstetric s [facility] [address] [place] [address] Barbie Feliz CRNP [address] [place] [address] Normal in second trimester*; Obesity in , antepartum; Hypothyroidism affecting in second trimester; Multigravida of advanced maternal age in second trimester; Previous delivery, antepartum condition or complication; History of prior with SGA ; Tobacco use affecting , antepartum Allergies No known active allergiesdocumented as of this encounter (statuses as of 11/15/2023) Medications Medication Sig Dispensed Refills Start Date End Date Status Levothyroxine Sodium 75 MCG Oral Tablet (Levoxyl) Take 1 Tablet by mouth in the morning. (at least 30 min prior to breakfast or other meds). 90 Tablet 3 09/16/2023 Active 28-0.8 MG Oral Tablet Take by mouth. 0 Active documented as of this encounter (statuses as of 11/15/2023) Active Problems Problem Noted Date Diagnosed Date Normal 10/17/2023 Obesity in , antepartum 10/17/2023 Overview: Class 1 Hypothyroidism affecting 10/17/2023 Overview: TSH Results: Lab [...] as of this encounter (statuses as of 11/15/2023) Resolved Problems Problem Noted Date Diagnosed Date [...] as of this encounter (statuses as of 11/15/2023) Immunizations Name Administration Dates Next Due TDAP [...] money to get more. Never true 02/25/2023 [place] Depression Scale Answer Date Recorded [place] Depression Scale Total 2 10/17/2023 The thought [...] Sign Reading Time Taken Comments Blood Pressure 102/60 11/15/2023 9:15 AM EST Pulse - - Temperature - - Respiratory Rate - - Oxygen Saturation - - Inhaled Oxygen Concentration - - Weight 100.7 kg (222 lb) 11/15/2023 9:15 AM EST Height 167.6 cm (5' 6") 11/15/2023 9:15 AM EST Body Mass Index 35.83 11/15/2023 9:15 AM EST documented in this encounter Progress Notes * Barbie Feliz CRNP - 11/15/2023 9:35 AM EST 14w6d No concerns. Low risk Qnatal. Completing early glucola today. Following with endocrine for thyroid. JIGNESH Macdonald * Renee Mandel LPN - 11/15/2023 9:15 AM EST 14w6d Doing early glucola documented in this encounter Plan of Treatment Upcoming Encounters Date Type Department Care Team (Late st Contact Info) Description 12/01/2023 8:20 AM EDT Telemedicine Endocrinology, [place] [address] [facility] [address] [place] [address] Dominik Lo, [address] [place] [address] 12/12/2023 9:30 AM EDT Office Visit Gynecology/Obstetrics [facility] [address] [place] [address] Rosalind Garcia CNM [address] [place] [address] Health Maintenance Due Date Last Done Comments Hepatitis B (1 of 3 - 19+ 3-dose series) 2008 COVID-19 Vaccine ( - 2022- season) 2023 Influenza Vaccine (FLU shot) (#1) [...] antepartum documented in this encounter Care Teams Ug Designer Relationship Specialty Start Date End Date Barbra Lord DO [address] [place] [address] PCP - General Family Medicine 01/06/23 documented as of this encounter
--- OUTSIDE RECORDS SUMMARY | 2024-05-02 12:57 | External Medical Summary ---
Author Name Unknown Address Unknown Organization K0G:LABORATORY [facility] [place] [address] - [address] [place] [address] Laboratory Report Ordering Provider Test Date Status EDER MENDOSAESTEBAN 11/15/2023 09:54:33 Final Observation Date Value Abnormality Reference (Units ) Status Glucose [Moles/volume] in Serum or Plasma --1 hour post 50 g glucose PO 11/15/2023 09:54:33 74 70-129 (mg/dL) Final Performing Location LABORATORY [facility] [place] [address] [place] [address]
--- OUTSIDE RECORDS SUMMARY | 2024-05-02 12:57 | External Medical Summary | Summary of Care ---
Author Name Unknown Organization [facility] Address [address] [address] Phone [phone] Care Team Providers Care Executive Talent Acquisition Consultant Name Role Phone Barbra Lord DO Primary Care Provider Reason for Visit * Reason Comments Outpatient Testing Encounter Details Date Type Department Care Team (Late st Contact Info) Description 11/15/2023 9:00 AM EST Laboratory Laboratory, [facility] [address] [facility] [place] [phone] [facility] [address] [facility] [place] [id number] Obesity in , antepartum Allergies No known active allergiesdocumented [...] money to get more. Never true 02/25/2023 [place] Depression Scale Answer Date Recorded [place] Depression Scale Total 2 10/17/2023 The thought [...] Description 12/01/2023 8:20 AM EDT Telemedicine Endocrinology, [place] [address] [facility] [address] [place] [address] Dominik Lo, DO [address] [place] [address] [place] [id number] 12/12/2023 9:30 AM EDT Office Visit Gynecology/Obstetrics [facility] [address] [facility] [place] [address] Rosalind Garcia, LUCAS [address] [place] [phone] Pending Results Name Type Priority Associated Diagnoses Date /Time 50-G GESTATIONAL GLUCOSE, 1 HOUR Lab Routine Obesity in , antepartum 11/15/2023 9:54 AM EST Health Maintenance Due Date Last Done Comments [...] as of this encounter Visit Diagnoses Diagnosis Obesity in , antepartum Obesity complicating , childbirth, or the puerperium, antepartum condition or complication documented in this encounter Care Teams Executive Talent Acquisition Consultant Relationship Specialty Start Date End Date Barbra Lord DO [address] [place] [id number] PCP - General Family Medicine 01/06/23 documented as of this encounter
[2024-05-02] MEDS: OXYTOCIN 20 UNITS/LR 1,002 ML IV SCH (13:04)
[2024-05-02] MEDS: IBUPROFEN 600 MG TAB PO SCH (13:05)
[2024-05-02] MEDS: ACETAMINOPHEN 325 MG TAB PO SCH (13:05)
[2024-05-02] MEDS: SIMETHICONE 80 MG CHEW PO SCH (13:06)
[2024-05-02] MEDS: KETOROLAC 30 MG/ML VIAL IV SCH (14:02)
[2024-05-02] MEDS: DOCUSATE SODIUM 100 MG CAP PO SCH (20:07)
[2024-05-03] MEDS ORDERED: diphenhydrAMINE Capsule 25 MG CAP PO PRN (02:42)
[2024-05-03] MEDS ORDERED: ONDANSETRON INJ 2 MG/ML 2 ML VIAL IV PRN (02:42)
[2024-05-03] MEDS ORDERED: PROMETHAZINE 12.5 MG/50.5 ML BAG IV PRN (02:42)
[2024-05-03] MEDS ORDERED: HYDROmorphone INJ 0.5 MG/0.5 ML SYR IV PRN (02:42)
[2024-05-03] MEDS ORDERED: diphenhydrAMINE 50 MG/ML VIAL IV PRN (02:42)
[2024-05-03] MEDS ORDERED: CITRIC ACID/SODIUM CITRATE 15 ML UDC PO SCH (06:00)
[2024-05-03] MEDS ORDERED: ACETAMINOPHEN 500 MG TAB PO SCH (06:00)
[2024-05-03] MEDS: LEVOTHYROXINE SODIUM 75 MCG TABLET PO SCH (06:20)
--- NOTE | 2024-05-03 06:26 | Obstetrical Progress Note ---
Date of Service May 03, 2024 Assessment & Plan Admission and Anticipated Discharge Date Admission Date: May 02, 2024 Subjective Patient is seen and examined. She feels well, no complaints. Pain is under control with oral meds. Ambulating without dizziness Voiding without difficulty Tolerating regular diet with out N&V Flatus + BM neg Bleeding is minimal No fever/ chills/ CP/ SOB/ N&V/ Leg pain Bottle feeding without problems Vital Signs Temp Pulse Resp BP Pulse Ox O2 Del Method 05/03/24 03:00 36.6 C 64 16 98/64 L 98 Room Air 05/03/24 01:56 16 98 05/03/24 00:54 16 97 05/02/24 23:30 36.7 C 71 18 97 Room Air 05/02/24 22:13 16 97 05/02/24 21:50 16 98 05/02/24 20:30 18 97 05/02/24 19:32 18 98 05/02/24 19:32 36.4 C L 71 18 102/59 L 98 Room Air Lab Results 05/02/24 05/02/24 Range/Units 06:00 06:01 WBC 13.06 H (4.8-10.8) K/ul RBC 4.17 L (4.20-5.40) M/uL Hgb 11.1 L (12.0-16.0) g/dl Hct 33.3 L (37.0-47.0) % MCV 79.9 L (80.0-100.0) fL MCH 26.6 (25.0-34.0) pg MCHC 33.3 (32.0-36.0) g/dL RDW Std Deviation 39.8 (36.4-46.3) fL RDW Coeff of Max 13.8 (11.5-14.5) % Plt Count 297 (130-400) K/uL MPV 11.7 (9.4-12.4) fL Treponema pallidum Ab Negative (Negative) Blood Type O Positive Antibody Screen NEGATIVE PE: General: Alert, orientedx3, NAD CVS: S1S2 RRR Lungs; CTAB Abd: soft, NT, ND, BS+, fundus firm, below Umbilicus Incision/ LOULOU Dressing: Clean, dry, intact Perineum intact, Lochia rubra minimal Ext; NT, no edema AP: 34 yo s/p RC Section, pod# 1 VSS Afebrile doing well Continue routine postop care Encourage ambulation, PO intake All questions were answered D/C home tomorrow Results & Data Vital Signs (Past 12 Hours) Vital Signs Temp Pulse Resp BP Pulse Ox O2 Del Method 05/03/24 03:00 36.6 C 64 16 98/64 L 98 Room Air 05/03/24 01:56 16 98 05/03/24 00:54 16 97 05/02/24 23:30 36.7 C 71 18 97 Room Air 05/02/24 22:13 16 97 05/02/24 21:50 16 98 05/02/24 20:30 18 97 05/02/24 19:32 18 98 05/02/24 19:32 36.4 C L 71 18 102/59 L 98 Room Air
[2024-05-03 06:49] LABS: Basophils # (auto) 0.02 K/uL (0.00-0.20); Basophils % (auto) 0.1 %; Eosinophils # (auto) 0.08 K/uL (0.00-0.50); Eosinophils % (auto) 0.5 %; Hematocrit (blood only) 31.8 % (37.0-47.0); Hemoglobin 10.3 g/dl (12.0-16.0); Immature Granulocytes # (auto) 0.09 K/uL (0.01-0.20); Immature Granulocytes % (auto) 0.6 %; Lymphocytes # (auto) 3.13 K/uL (1.20-3.40); Lymphocytes % (auto) 21.3 %; Mean Corpuscular Hemoglobin 26.4 pg (25.0-34.0); Mean Corpuscular Hgb Conc 32.4 g/dL (32.0-36.0); Mean Corpuscular Volume 81.5 fL (80.0-100.0); Mean Platelet Volume 11.6 fL (9.4-12.4); Monocytes % (auto) 6.8 %; Neutrophils # (auto) 10.37 K/uL (1.40-6.50); Neutrophils % (auto) 70.7 %; Platelet Count 281 K/uL (130-400); RDW Standard Deviation 41.1 fL (36.4-46.3); White Blood Count 14.69 K/ul (4.8-10.8)
[2024-05-03] MEDS ORDERED: NON-FORMULARY MEDICATION (Prenat.Vits,Cal,Min-Iron-Folic Tablet) PO SCH (09:00)
[2024-05-03] MEDS ORDERED: NON-FORMULARY MEDICATION (Iron,Carbonyl-Vitamin C [Vitron-C] 65 mg iron- 125 mg Tablet,Del PO SCH (09:00)
[2024-05-03] MEDS: FERROUS SULFATE 325 MG TAB PO SCH (11:16)
[2024-05-03] MEDS: PRENATAL VITAMIN 1 TAB PO SCH (11:16)
[2024-05-03] MEDS: oxyCODONE HCL IR 5 MG TAB (IMMEDIATE RELEASE) PO PRN (14:54)
[2024-05-03] MEDS: bisacodyL 5 MG TABEC PO SCH (20:22)
[2024-05-04 07:46] VITALS: BP 108/72; PULSE 69; RESP 16; TEMP 97.5; O2SAT 100
[2024-05-04] MEDS: MAGNESIUM HYDROXIDE SUSP 30 ML UDC PO PRN (08:36)
[2024-05-04] MEDS ORDERED: ACETAMINOPHEN 325 MG TAB PO PRN (09:30)
[2024-05-04] MEDS ORDERED: IBUPROFEN 600 MG TAB PO PRN (09:30)
[2024-05-04] MEDS ORDERED: bisacodyL 10 MG SUPP PR PRN (09:30)
--- NOTE | 2024-05-04 10:48 | Obstetrical Progress Note ---
Date of Service May 04, 2024 Subjective Ambulation: ambulating normally Voiding: no voiding problems Passing Gas:: Yes Diet Tolerance:: regular diet Lochia:: Small Feeding Type:: breast feeding Current Pain Level(1-10): 0 doing well. plans for d/c today. Physical Exam Constitutional WD/WN, vitals as above Gastrointestinal (Abdomen) Inspection/Auscultation: abdomen normal to inspection incision c/d/i abdomen soft and non-tender Musculoskeletal Extremities: extremities normal to inspection Skin no rashes, warm and dry Neurologic patellar DTR's 2+ bilat, sensation intact Psychiatric A+Ox3, euthymic affect Results & Data Vital Signs (Past 12 Hours) Vital Signs Temp Pulse Resp BP Pulse Ox O2 Del Method 05/04/24 07:26 36.4 C L 69 16 108/72 100 Room Air 05/03/24 23:17 36.5 C 62 20 105/65 98 Room Air Laboratory Results 05/02/24 05/02/24 05/03/24 06:00 06:01 06:18 WBC 13.06 H 14.69 H RBC 4.17 L 3.90 L Hgb 11.1 L 10.3 L Hct 33.3 L 31.8 L MCV 79.9 L 81.5 MCH 26.6 26.4 MCHC 33.3 32.4 RDW Std Deviation 39.8 41.1 RDW Coeff of Max 13.8 14.0 Plt Count 297 281 MPV 11.7 11.6 Immature Gran % (Auto) 0.6 Neut % (Auto) 70.7 Lymph % (Auto) 21.3 Carlton % (Auto) 6.8 Eos % (Auto) 0.5 Baso % (Auto) 0.1 Neut # (Auto) 10.37 H Lymph # (Auto) 3.13 Carlton # (Auto) 1.00 H Eos # (Auto) 0.08 Baso # (Auto) 0.02 Immature Gran # (Auto) 0.09 Treponema pallidum Ab Negative Blood Type O Positive Antibody Screen NEGATIVE
== END 2024-05-04 11:15 | disposition home or self-care (01) | DRG 785 ==
LOC: 4S1 05:37 → EDSTATUS 07:30 → 4E2 12:33
PROC: M.PPTLD (2024-05-02 07:30)